=== PATIENT | male | born 1935 | race Caucasian/White ===

== ENCOUNTER 2017-03-19 12:53 | Emergency (ER) | payer MEDICARE, BC ==
[2017-03-19] MEDS ORDERED: DIPH,PERTUS(ACELL)TETVAC-LF 0.5 ML VIAL IM ONE (13:17)
--- NOTE | 2017-03-19 13:27 | ED ---
Wound/Laceration HPI - General Chief Complaint: Wound/Laceration Stated Complaint: Left Finger Laceration Time Seen by Provider: 03/19/17 13:13 Source: patient, RN notes reviewed Mode of arrival: ambulatory Limitations: no limitations - History of Present Illness Initial Comments: This is an 81-year-old male presents to emergency department today with chief complaint of left index finger laceration. Patient states he was using a table saw this morning at about 11 AM when he cut the tip of his left index finger. He wrapped his wound and his transported him to the emergency department. Patient states he is not in any pain. Patient states he is not on any blood thinners. He reports he is not up-to-date with his tetanus vaccination. Denies fever, chills, chest pain, shortness of breath, abdominal pain, nausea, vomiting , dysuria, hematuria, numbess, tingling, headache or vision changes. - Related Data Home Medications Medication Instructions Recorded Confirmed Cetirizine HCl 10 mg PO DAILY 03/02/15 03/13/15 Triamcinolone Acetonide [Nasacort] 1 spray EA NOSTRIL DAILY 03/02/15 03/13/15 Naproxen Sodium [Aleve] 220 mg PO BID PRN 03/19/17 03/19/17 Previous Rx's Medication Instructions Recorded Cephalexin [Keflex] 500 mg PO Q12HR #20 cap 03/19/17 Allergies Allergy/AdvReac Type Severity Reaction Status Date / Time No Known Allergies Allergy Verified 03/19/17 13:45 Review of Systems ROS Statement: Those systems with pertinent positive or pertinent negative responses have been documented in the HPI. ROS Other: All systems not noted in ROS Statement are negative. Past Medical History Past Medical History: Cancer, Eye Disorder, Hearing Disorder / Deafness, Skin Disorder Additional Past Medical History / Comment(s): HX LT CATARACT; "CA COLON POLYP, " & SKIN LESION CA; ING HERNIA'S AIDEN, LT RECURRENT NOW. History of Any Multi-Drug Resistant Organisms: None Reported Past Surgical History: Cholecystectomy, Hernia Repair, Orthopedic Surgery Additional Past Surgical History / Comment(s): COLONOSCOPY W/ POLYP. EXC LT CATARACT. RT ROTATOR CUFF, CTR, KNEE SCOPE. AIDEN ING HERNIA'S. Past Anesthesia/Blood Transfusion Reactions: No Reported Reaction Additional Past Anesthesia/Blood Transfusion Reaction / Comment(s): NO HX BLOOD TRANSFUSION. Past Psychological History: No Psychological Hx Reported Smoking Status: Never smoker Past Alcohol Use History: None Reported Past Drug Use History: None Reported - Past Family History Mother Family Medical History: Cancer General Exam - General Exam Comments Initial Comments: General: Awake and alert, well-developed; in no apparent distress. HEENT: Head atraumatic, normocephalic. Pupils are equal, round and reactive to light. Extraocular movements intact. Neck: Supple. Normal ROM. Cardiovascular: Regular rate and rhythm. No murmurs, rubs or gallops. Chest symmetrical. Respiratory: Lungs clear to auscultation bilaterally. No wheezes, rales or rhonchi. Normal respiratory effort with no use of accessory muscles. Musculoskeletal: Distal left index finger partial amputation at tip and lateral border of nail. Minimal bleeding. Neurovascular intact. Skin: [place], warm and dry without rashes or lesions. Neurological: Alert and oriented x3. CN II-XII grossly intact. Speech is fluent and answers are appropriate. No focal neuro deficits. Psychiatric: Normal mood and affect. No overt signs of depression or anxiety noted. Limitations: no limitations Course Vital Signs 03/19/17 03/19/17 13:08 14:44 Temperature 98.1 F 97.6 F Pulse Rate 86 80 Respiratory 20 16 Rate Blood Pressure 158/77 151/78 O2 Sat by Pulse 98 98 Oximetry Procedures - Laceration Laceration #1 Consent Obtained: verbal consent Indication: laceration Site: hand (left index finger tip) Description: linear Depth: simple, single layer Anesthesia Technique: nerve block Pre-repair: wound explored, irrigated extensively, deep structures intact Type of Sutures: nylon Size of Sutures: 4-0 Number of Sutures: 1 Technique: simple, interrupted Patient Tolerated Procedure: well, no complications - Nerve Block Consent Obtained: verbal consent Local Anesthetic Used: Lidocaine 1% Side: left Nerve Blocks: digital Procedure Successful: Yes Complications: none Patient Tolerated Procedure: well Medical Decision Making - Medical Decision Making Left hand x-ray demonstrates only soft tissue injury. There is no acute bone abnormality evident. Patient will be discharged home with prescription for Keflex. One suture was placed at the tip of the left index finger. Patient tolerated procedure well. Patient was given an up-to-date tetanus vaccination. Disposition Clinical Impression: Laceration of left index finger Disposition: HOME SELF-CARE Condition: Good Instructions: Finger Laceration (ED) Additional Instructions: Please take medications as prescribed. Please follow up with PCP within 1-2 days. Please follow up with orthopedics, Dr. Espinal within 1-2 days. Return to ED if any signs of infection occur including redness or swelling. Prescriptions: Cephalexin [Keflex] 500 mg PO Q12HR #20 cap Referrals: Mushtaq Kern DO [Primary Care Provider] - 1-2 days Elfego Espinal MD [STAFF PHYSICIAN] - 1-2 days Time of Disposition: 14:39
--- NOTE | 2017-03-19 14:01 | XR ---
Left hand HISTORY: Laceration 3 views of the left hand No comparisons Soft tissue defect noted at the second digit distally of the left hand. No fracture or dislocation. N o radiopaque foreign body. Arthropathy noted in the digits, radiocarpal joint, metacarpophalangeal madelyn ints. There are vascular calcifications. Metallic density present in the thenar eminence region measu res 2 mm and is of questionable clinical significance. IMPRESSION: Soft tissue injury. No acute bone abnormality evident. Follow-up as indicated.
[2017-03-19 14:45] VITALS: BP 151/78; PULSE 80; RESP 16; TEMP 97.6
--- NOTE | 2017-03-21 08:39 | CDI ---
Documentation Clarification OP Dear Sonya COLLINS, PAC Please do addendum to ED report include the length and depth of the repair. Thank you, Vera Michelle Wet Room Supervisor If you have any question, Please contact canvassing manager at [phone] SALD
== END 2017-03-19 14:49 | disposition home or self-care (01) ==
LOC: EC 12:53
DX: S61.211A Laceration without foreign body of left index finger without damage to nail, initial encounter (principal); Z23 Encounter for immunization; Z85.038 Personal history of other malignant neoplasm of large intestine; Z85.828 Personal history of other malignant neoplasm of skin; Z79.899 Other long term (current) drug therapy; W31.2XXA Contact with powered woodworking and forming machines, initial encounter
CPT/HCPCS: 12001; 90471; 90715; 99283

== ENCOUNTER 2017-04-09 08:09 | Emergency (ER) | payer MEDICARE, BC ==
[2017-04-09 08:17] VITALS: TEMP 97.8
[2017-04-09] MEDS ORDERED: ORPHENADRINE 30 MG/ML 2 ML VIAL IM STA (08:32)
[2017-04-09] MEDS ORDERED: KETOROLAC 60 MG/2 ML VIAL IM STA (08:32)
--- NOTE | 2017-04-09 08:52 | ED ---
Back Pain HPI - General Chief Complaint: Back Pain/Injury Stated Complaint: back pain left side Time Seen by Provider: 04/09/17 08:25 Source: patient, RN notes reviewed, old records reviewed Limitations: no limitations - History of Present Illness Initial Comments: This is a 81-year-old male presents emergency Department chief complaint of left -sided thoracic back pain after he was picking up walnuts. Patient reports he bent down to pick a walnut up when one fell from the tree. He reports he landed on his left thoracic back. He reports that since that he's been having some pain. He reports it's painful whenever he moves. Patient states he's had no change in urination or bowel habits. Denies any fever or chills. Patient states that it is uncomfortable to sleep last night. He did take Aleve prior to arriving to emergency department. Denies any history significant past medical history, denies any known history of back problems. - Related Data Home Medications Medication Instructions Recorded Confirmed Triamcinolone Acetonide [Nasacort] 1 spray EA NOSTRIL DIRECTED 03/02/1504/09 Previous Rx's Medication Instructions Recorded Cyclobenzaprine [Flexeril] 10 mg PO TID #20 tab 04/09/17 Allergies Allergy/AdvReac Type Severity Reaction Status Date / Time No Known Allergies Allergy Verified 04/09/17 08:35 Review of Systems ROS Statement: Those systems with pertinent positive or pertinent negative responses have been documented in the HPI. ROS Other: All systems not noted in ROS Statement are negative. Past Medical History Past Medical History: Cancer, Eye Disorder, Hearing Disorder / Deafness, Skin Disorder Additional Past Medical History / Comment(s): HX LT CATARACT; "CA COLON POLYP, " & SKIN LESION CA; ING HERNIA'S AIDEN, LT RECURRENT NOW. History of Any Multi-Drug Resistant Organisms: None Reported Past Surgical History: Cholecystectomy, Hernia Repair, Orthopedic Surgery Additional Past Surgical History / Comment(s): COLONOSCOPY W/ POLYP. EXC LT CATARACT. RT ROTATOR CUFF, CTR, KNEE SCOPE. AIDEN ING HERNIA'S. Past Anesthesia/Blood Transfusion Reactions: No Reported Reaction Additional Past Anesthesia/Blood Transfusion Reaction / Comment(s): NO HX BLOOD TRANSFUSION. Past Psychological History: No Psychological Hx Reported Smoking Status: Never smoker Past Alcohol Use History: None Reported Past Drug Use History: None Reported - Past Family History Mother Family Medical History: Cancer General Exam - General Exam Comments Initial Comments: 81-year-old male. No acute distress. Limitations: no limitations General appearance: alert, in no apparent distress Head exam: Present: atraumatic, normocephalic, normal inspection Eye exam: Present: normal appearance, PERRL, EOMI. Absent: scleral icterus, conjunctival injection, periorbital swelling ENT exam: Present: normal exam, mucous membranes moist Neck exam: Present: normal inspection. Absent: tenderness, meningismus, lymphadenopathy Respiratory exam: Present: normal lung sounds bilaterally, chest wall tenderness (Patient has some tenderness over the mid thoracic paraspinal muscles. Patient has no bruising noted. No rashes noted.). Absent: respiratory distress, wheezes, rales, rhonchi, stridor Cardiovascular Exam: Present: regular rate, normal rhythm, normal heart sounds. Absent: systolic murmur, diastolic murmur, rubs, gallop, clicks GI/Abdominal exam: Present: soft, normal bowel sounds. Absent: distended, tenderness, guarding, rebound, rigid Extremities exam: Present: normal inspection, full ROM, normal capillary refill. Absent: tenderness, pedal edema, joint swelling, calf tenderness Back exam: Present: normal inspection Neurological exam: Present: alert, oriented X3, CN II-XII intact Psychiatric exam: Present: normal affect, normal mood Skin exam: Present: warm, dry, intact, normal color. Absent: rash Course Vital Signs 04/09/17 08:15 Temperature 97.8 F Pulse Rate 75 Respiratory 20 Rate Blood Pressure 173/94 O2 Sat by Pulse 98 Oximetry Medical Decision Making - Medical Decision Making 81-year-old male presents emergency room chief complaint of left thoracic muscle pain after he was hit with a walnut [employer] from his yard. Patient has no bruising noted. Discussed the possibility of early shingles with the pain in this area. Patient reports pain is worse with movement. He is tender to palpation over the paraspinal muscles. This time patient is given Toradol and Norflex. Patient will be discharged in stable muscle relaxers and advised to take anti-inflammatory medication. Applying heat and ice over the area. Discussed if he has any other attempts tomorrow symptoms he should return the emergency department. His thoracic and lumbar spine x-rays reviewed and show no acute abdomen days. Urinalysis is negative for any blood in his urine are signs of infection. At this time patient will be discharged with close follow-up with primary care provider. Return primary's were discussed. - Lab Data Lab Results 04/09/17 Range/Units 08:36 Urine Color Yellow Urine Appearance Clear (Clear) Urine pH 6.0 (5.0-8.0) Ur Specific [place] 1.020 (1.001-1.035) Urine Protein Trace H (Negative) Urine Glucose (UA) Negative (Negative) Urine Ketones Negative (Negative) Urine Blood Negative (Negative) Urine Nitrite Negative (Negative) Urine Bilirubin Negative (Negative) Urine Urobilinogen <2.0 (<2.0) mg/dL Ur Leukocyte Esterase Negative (Negative) - Radiology Data Radiology results: report reviewed Lumbar spine x-ray shows an acute fracture subluxation. Degenerative disc disease and facet arthropathy. Evidence of osteopenia. Thoracic spine shows no acute fracture subluxation. Disposition Clinical Impression: Thoracic back pain Disposition: HOME SELF-CARE Condition: Good Instructions: Acute Low Back Pain (ED) Additional Instructions: Patient is to continue to take anti-inflammatory medication such as Aleve. She also can take muscle relaxers as prescribed. Apply heat and ice to the back. Follow up with her primary care provider within the next 1-2 days. Prescriptions: Cyclobenzaprine [Flexeril] 10 mg PO TID #20 tab Referrals: Mushtaq Kern DO [Primary Care Provider] - 1-2 days Time of Disposition: 09:40
[2017-04-09 09:11] LABS: Appearance,Urine Clear (Clear); Bilirubin,Urine Negative (Negative); Glucose,Urine (UA) Negative (Negative); Ketones,Urine Negative (Negative); Leukocyte Esterase,Urine Negative (Negative); Nitrite,Urine Negative (Negative); Protein,Urine Trace (Negative); UA Billing (MACRO vs. MICRO) CHEM; Urobilinogen,Urine <2.0 mg/dL (<2.0)
--- NOTE | 2017-04-09 09:19 | XR ---
Thoracic spine HISTORY: Back pain, trauma 2 views of the thoracic spine on 4 images Thoracic vertebral bodies show preserved height and alignment. Bone mineralization is reduced. There is mild spinal curvature, multilevel spondylosis. Disc spaces relatively maintained. IMPRESSION: No acute fracture or subluxation.
--- NOTE | 2017-04-09 09:20 | XR ---
Lumbar spine HISTORY: Trauma and pain 3 views of the lumbar spine Lumbar vertebral bodies show preserved height and alignment. Bone mineralization is reduced. Spondylo sis. Mild loss of disc height at the intervertebral levels. Sclerosis present in the posterior elemen ts. Vascular calcifications are present. Surgical clips noted in the right upper quadrant. IMPRESSION: No acute fracture or subluxation. Degenerative disc disease and facet arthropathy, osteop enia.
[2017-04-09 09:57] VITALS: BP 161/78; PULSE 78; RESP 16
== END 2017-04-09 09:54 | disposition home or self-care (01) ==
LOC: EC 08:09
DX: M54.6 Pain in thoracic spine (principal); Z85.828 Personal history of other malignant neoplasm of skin; Z79.52 Long term (current) use of systemic steroids
CPT/HCPCS: 81003; 72070; 72100; 99284; 96372 ×2; J2360; J1885

== ENCOUNTER 2020-02-08 17:53 | Emergency (ER) | payer MEDICARE, BC ==
[2020-02-08 18:01] VITALS: RESP 18; TEMP 98
[2020-02-08] MEDS ORDERED: SODIUM CHLORIDE 0.9% 1,000 ML IV STA (18:09)
[2020-02-08] MEDS ORDERED: SODIUM CHLORIDE 0.9% 500 ML 500 ML IV STA (18:09)
--- NOTE | 2020-02-08 18:10 | ED ---
Chest Pain HPI - General Chief Complaint: Chest Pain Stated Complaint: chest pain Time Seen by Provider: 02/08/20 18:09 Source: patient, RN notes reviewed, old records reviewed Mode of arrival: wheelchair Limitations: no limitations - History of Present Illness Initial Comments: This is a 4-year-old male DF for evaluation of chest pain. Patient has no significant history of chest pain patient requiring anything for pain states the chest pain is just mild admits using a heat pad on the right side of his chest on arrival to the ER admits he notices a rash on the right side of his chest patient has no significant heart history no high blood pressure cholesterol diabetes, no recent fevers cough or congestion. No current shortness of breath. MD Complaint: chest pain (Right-sided chest) -: hour(s) Pain Location: right chest Severity: mild Severity scale (1-10): 2 Quality: sharp, other (Burning) Consistency: intermittent Improves With: nothing Worsens With: nothing Treatments Prior to Arrival: none - Related Data Home Medications Medication Instructions Recorded Confirmed Triamcinolone Acetonide [Nasacort] 1 spray EA NOSTRIL DIRECTED 03/02/15 04/09/17 Previous Rx's Medication Instructions Recorded Cyclobenzaprine [Flexeril] 10 mg PO TID #20 tab 04/09/17 Allergies Allergy/AdvReac Type Severity Reaction Status Date / Time No Known Allergies Allergy Verified 02/08/20 18:01 Review of Systems ROS Statement: Those systems with pertinent positive or pertinent negative responses have been documented in the HPI. ROS Other: All systems not noted in ROS Statement are negative. EKG Findings - EKG Comments: EKG Findings:: EKG is sinus rhythm 79, SC 160 QRS 90 QTC 442 Past Medical History Past Medical History: Cancer, Eye Disorder, Hearing Disorder / Deafness, Skin Disorder Additional Past Medical History / Comment(s): HX LT CATARACT; "CA COLON POLYP," & SKIN LESION CA; ING HERNIA'S AIDEN, LT RECURRENT NOW. History of Any Multi-Drug Resistant Organisms: None Reported Past Surgical History: Cholecystectomy, Hernia Repair, Orthopedic Surgery Additional Past Surgical History / Comment(s): COLONOSCOPY W/ POLYP. EXC LT CATARACT. RT ROTATOR CUFF, CTR, KNEE SCOPE. AIDEN ING HERNIA'S. Past Anesthesia/Blood Transfusion Reactions: No Reported Reaction Additional Past Anesthesia/Blood Transfusion Reaction / Comment(s): NO HX BLOOD TRANSFUSION. Past Psychological History: No Psychological Hx Reported Smoking Status: Never smoker Past Alcohol Use History: None Reported Past Drug Use History: None Reported - Past Family History Mother Family Medical History: Cancer General Exam Limitations: no limitations General appearance: alert, in no apparent distress Head exam: Present: atraumatic, normocephalic, normal inspection Eye exam: Present: normal appearance, PERRL, EOMI. Absent: scleral icterus, conjunctival injection, periorbital swelling ENT exam: Present: normal exam, mucous membranes moist Neck exam: Present: normal inspection. Absent: tenderness, meningismus, lymphadenopathy Respiratory exam: Present: normal lung sounds bilaterally. Absent: respiratory distress, wheezes, rales, rhonchi, stridor Cardiovascular Exam: Present: regular rate, normal rhythm, normal heart sounds, other (Patient does have herpetic type rash right side of chest). Absent: systolic murmur, diastolic murmur, rubs, gallop, clicks GI/Abdominal exam: Present: soft, normal bowel sounds. Absent: distended, tenderness, guarding, rebound, rigid Extremities exam: Present: normal inspection, full ROM, normal capillary refill. Absent: tenderness, pedal edema, joint swelling, calf tenderness Back exam: Present: normal inspection Neurological exam: Present: alert, oriented X3, CN II-XII intact Psychiatric exam: Present: normal affect, normal mood Skin exam: Present: warm, dry, intact, normal color. Absent: rash Course Vital Signs 02/08/20 02/08/20 17:56 18:46 Temperature 98.0 F Pulse Rate 81 79 Respiratory 18 18 Rate Blood Pressure 170/92 170/90 O2 Sat by Pulse 96 97 Oximetry - Reevaluation(s) Reevaluation #1: Medical record is reviewed Patient is without significant symptoms here in the ER feels improved Spoke patient regarding findings, questions answered Patient feels comfortable with discharge Chest Pain MDM - MDM 84 male DF for evaluation of chest pain patient does have herpetic type rash on right side of chest possibly be burn from warming, patient has a normal chest x- ray normal CTA of his chest normal lab values EKG and troponin. Patient does not want to be admitted would like discharge and can be discharged home Disposition Clinical Impression: Atypical chest pain, Herpes zoster Disposition: HOME SELF-CARE Condition: Good Instructions (If sedation given, give patient instructions): Chest Pain (ED), Shingles (ED) Is patient prescribed a controlled substance at d/c from ED?: No Referrals: Mushtaq Kern DO [Primary Care Provider] - 1-2 days
[2020-02-08 18:36] LABS: Basophils # (A) 0.1 k/uL (0-0.2); Basophils % (A) 1 %; Eosinophils # (A) 0.5 k/uL (0-0.7); Eosinophils % (A) 9 %; HCT 44.7 % (39.0-53.0); HGB 14.3 gm/dL (13.0-17.5); Lymphocytes # (A) 0.9 k/uL (1.0-4.8); Lymphocytes % (A) 15 %; MCH 29.3 pg (25.0-35.0); MCV 91.5 fL (80.0-100.0); Mean Platelet Volume 7.4; Monocytes # (A) 0.5 k/uL (0-1.0); Monocytes % (A) 9 %; Neutrophils # (A) 3.6 k/uL (1.3-7.7); Neutrophils % (A) 63 %; Platelet Count 226 k/uL (150-450); RBC 4.88 m/uL (4.30-5.90); RDW 12.7 % (11.5-15.5); WBC 5.7 k/uL (3.8-10.6)
[2020-02-08 18:47] VITALS: BP 170/90; PULSE 79
[2020-02-08 18:48] LABS: D-Dimer 0.44 mg/L FEU (<0.60); Prothrombin Time 10.4 sec (9.0-12.0)
[2020-02-08 18:54] LABS: ALT 17 U/L (4-49); AST 22 U/L (17-59); African American GFR (CKD) >90 (>60 ml/min/1.73 sqM); Albumin 4.1 g/dL (3.5-5.0); Alkaline Phosphatase 60 U/L (38-126); Anion Gap 5 mmol/L; Blood Urea Nitrogen 10 mg/dL (9-20); Calcium 9.5 mg/dL (8.4-10.2); Carbon Dioxide 28 mmol/L (22-30); Chloride 104 mmol/L (98-107); Creatine Kinase 50 U/L (55-170); Glucose 87 mg/dL (74-99); Magnesium 2.1 mg/dL (1.6-2.3); Non-African American GFR(CKD) 81 (>60 ml/min/1.73 sqM); Potassium 4.1 mmol/L (3.5-5.1); Sodium 137 mmol/L (137-145); Total Bilirubin 0.6 mg/dL (0.2-1.3); Total Protein 6.9 g/dL (6.3-8.2)
--- NOTE | 2020-02-08 18:56 | XR ---
EXAMINATION TYPE: XR chest 2V DATE OF EXAM: 02/08/2020 COMPARISON: NONE HISTORY: Shortness of breath TECHNIQUE: Frontal and lateral views of the chest are obtained. FINDINGS: Scattered senescent parenchymal changes noted. Hyperinflation compatible with COPD. No evidence for infiltrate. No evidence for atelectasis. Heart size is stable. Mediastinal structures are stable and grossly unremarkable. No evidence for hilar prominence. Degenerative changes dorsal spine. IMPRESSION: 1. No evidence for acute pulmonary disease.
--- NOTE | 2020-02-08 19:48 | CT ---
EXAMINATION TYPE: CT angio chest DATE OF EXAM: 02/08/2020 COMPARISON: None HISTORY: chest pain CT DLP: 353 mGycm CONTRAST: CT chest with contrast and 3D reconstruction with MIP imaging is performed with IV Contrast, patient injected with 100 mL of Isovue 370. Contrast-enhanced CT of the chest was performed through the course of the pulmonary arteries with armani g and mediastinal window settings submitted. 3D reconstruction with MIP imaging was also performed. PULMONARY ARTERIES: The pulmonary arteries and their major tributaries are patent. I do not see sergio dence for sizable filling defect to suggest pulmonary embolic process. LUNGS: The lungs are clear and free of infiltrate. No evidence for atelectasis. No pulmonary nodule or mass is detected. No pleural effusion. MEDIASTINUM: Thoracic aorta is of normal caliber,however, evaluation is limited given timing of the contrast bolus. If there is concern for thoracic aortic pathology consider MELINDA. Correlate clinicall y . The heart is not enlarged. No evidence for mediastinal mass. No mediastinal lymph nodes greater than 1cm. HILAR STRUCTURES: No evidence for mass. No hilar lymph nodes greater than 1 cm. UPPER ABDOMEN: Nonspecific Hypoattenuating renal and hepatic lesions. IMPRESSION: 1. No evidence for Pulmonary embolism at this time.
[2020-02-08] MEDS ORDERED: KETOROLAC 15 MG/ML 1 ML VIAL IVP STA (20:00)
[2020-02-08] MEDS ORDERED: IBUPROFEN 600 MG STARTER PACK 4 TAB BTL PO STA (20:00)
[2020-02-08] MEDS ORDERED: ACET/COD 300 MG/30 MG STARTER PACK 6 TAB BTL PO STA (20:00)
[2020-02-08] MEDS ORDERED: Acetaminophen-Codeine 300-30mg TAB PO STA (20:00)
[2020-02-08] MEDS ORDERED: LIDOCAINE 5% PATCH TOPICAL ONE (20:17)
[2020-02-09] MEDS ORDERED: LIDOCAINE 5% PATCH TOPICAL SCH (09:00)
== END 2020-02-08 20:31 | disposition home or self-care (01) ==
LOC: EC 17:53
DX: R07.89 Other chest pain (principal); B02.9 Zoster without complications; H91.90 Unspecified hearing loss, unspecified ear; Z79.51 Long term (current) use of inhaled steroids; Z85.828 Personal history of other malignant neoplasm of skin; Z85.038 Personal history of other malignant neoplasm of large intestine
CPT/HCPCS: 36415; 93005; 85379; 83880; 80053; 82550; 83690; 83735; 84484; 85025; 85610; 85730; 71046; 71275; 99285; 96360; 96361; Q9967

== ENCOUNTER 2020-03-05 08:14 | Emergency (ER) | payer MEDICARE, BC ==
[2020-03-05 08:20] VITALS: BP 161/96; PULSE 84; RESP 18; TEMP 97.6
[2020-03-05] MEDS ORDERED: ACET/COD 300 MG/30 MG STARTER PACK 6 TAB BTL PO STA (08:40)
[2020-03-05] MEDS ORDERED: LIDOCAINE 5% PATCH TOPICAL STA (08:40)
[2020-03-05] MEDS ORDERED: MORPHINE SULFATE 4 MG/ML SYRINGE IM STA (08:41)
--- NOTE | 2020-03-05 09:08 | ED ---
General Adult HPI - General Chief complaint: Skin/Abscess/Foreign Body Stated complaint: Pain control shingles Time Seen by Provider: 03/05/20 08:28 Source: patient, RN notes reviewed, old records reviewed Mode of arrival: ambulatory Limitations: no limitations - History of Present Illness Initial comments: Patient is an 84-year-old male who presents to the ER today for evaluation with complaints of postherpetic neuralgia. Patient reports his diagnosis shingles in January. He states is been taking gabapentin and pregabalin since seen by his PCP. He states that he is not having any significant relief of his pain. Patient states that he has no shift shortness of breath or chest pain. He states that the right side of his chest is very sensitive to touch. He states that he has no active lesions and they're all scarring and trying to heal. - Related Data Home Medications Medication Instructions Recorded Confirmed Triamcinolone Acetonide [Nasacort] 1 spray EA NOSTRIL DIRECTED 03/02/15 04/09/17 Previous Rx's Medication Instructions Recorded Cyclobenzaprine [Flexeril] 10 mg PO TID #20 tab 04/09/17 Acetaminophen-Codeine 300-30mg 1 tab PO Q6H PRN 3 Days #12 tablet 03/05/20 [Tylenol w/codeine #3] Lidocaine 5% Patch [Lidoderm 5% 1 patch TOPICAL DAILY #30 patch 03/05/20 Patch] Allergies Allergy/AdvReac Type Severity Reaction Status Date / Time No Known Allergies Allergy Verified 03/05/20 08:20 Review of Systems ROS Statement: Those systems with pertinent positive or pertinent negative responses have been documented in the HPI. ROS Other: All systems not noted in ROS Statement are negative. Past Medical History Past Medical History: Cancer, Eye Disorder, Hearing Disorder / Deafness, Skin Disorder Additional Past Medical History / Comment(s): HX LT CATARACT; "CA COLON POLYP," & SKIN LESION CA; ING HERNIA'S AIDEN, LT RECURRENT NOW. History of Any Multi-Drug Resistant Organisms: None Reported Past Surgical History: Cholecystectomy, Hernia Repair, Orthopedic Surgery Additional Past Surgical History / Comment(s): COLONOSCOPY W/ POLYP. EXC LT CATARACT. RT ROTATOR CUFF, CTR, KNEE SCOPE. AIDEN ING HERNIA'S. Past Anesthesia/Blood Transfusion Reactions: No Reported Reaction Additional Past Anesthesia/Blood Transfusion Reaction / Comment(s): NO HX BLOOD TRANSFUSION. Past Psychological History: No Psychological Hx Reported Smoking Status: Never smoker Past Alcohol Use History: None Reported Past Drug Use History: None Reported - Past Family History Mother Family Medical History: Cancer General Exam - General Exam Comments Initial Comments: A 84-year-old male. Alert and oriented. No significant distress. Limitations: no limitations General appearance: alert, in no apparent distress Head exam: Present: atraumatic, normocephalic, normal inspection Eye exam: Present: normal appearance, PERRL, EOMI. Absent: scleral icterus, conjunctival injection, periorbital swelling ENT exam: Present: normal exam, mucous membranes moist Neck exam: Present: normal inspection. Absent: tenderness, meningismus, lymphadenopathy Respiratory exam: Present: normal lung sounds bilaterally, other (Patient has erythematous scarring over the right chest wall into the neck. Areas on right- sided see 3-4 dermatome. No evidence of papular lesions. Significant tenderness with palpation over chest). Absent: respiratory distress, wheezes, rales, rhonchi, stridor Cardiovascular Exam: Present: regular rate, normal rhythm, normal heart sounds. Absent: systolic murmur, diastolic murmur, rubs, gallop, clicks GI/Abdominal exam: Present: soft, normal bowel sounds. Absent: distended, tenderness, guarding, rebound, rigid Extremities exam: Present: normal inspection, full ROM, normal capillary refill. Absent: tenderness, pedal edema, joint swelling, calf tenderness Back exam: Present: normal inspection Neurological exam: Present: alert, oriented X3, CN II-XII intact Course Vital Signs 03/05/20 08:16 Temperature 97.6 F Pulse Rate 84 Respiratory 18 Rate Blood Pressure 161/96 O2 Sat by Pulse 99 Oximetry Medical Decision Making - Medical Decision Making A sexual male presents with right chest wall pain and postherpetic neuralgia. He has evidence of healing scar tissue over the previous lesions. Patient at the systems are day taking gabapentin and pregabalin. Patient's given IM pain medication and lidocaine patch. We'll start the Patient on Tylenol 3 starter pack. I advised Patient to follow-up with PCP in regards to increasing pregabalin and gabapentin. Disposition Clinical Impression: Post herpetic neuralgia Disposition: HOME SELF-CARE Condition: Good Instructions (If sedation given, give patient instructions): Shingles (ED) Additional Instructions: Patient is a follow-up with your PCP in regards to adjusting gabapentin dosage. Return to the ED if any alarming signs or symptoms occur. Taking pain medication as discussed and using the lidocaine patches for 12 hours on and 12 hours off. Prescriptions: Lidocaine 5% Patch [Lidoderm 5% Patch] 1 patch TOPICAL DAILY #30 patch Acetaminophen-Codeine 300-30mg [Tylenol w/codeine #3] 1 tab PO Q6H PRN 3 Days #12 tablet PRN Reason: Pain Is patient prescribed a controlled substance at d/c from ED?: Yes If prescribed controlled substance>3 days was MAPS reviewed?: Prescribed <3 Days If opioid is for acute pain is fill amount 7 days or less?: Yes If Rx opioid, was Start Talking consent form obtained?: Yes Referrals: Mushtaq Kern DO [Primary Care Provider] - 1-2 days Time of Disposition: 09:05
== END 2020-03-05 09:14 | disposition home or self-care (01) ==
LOC: EC 08:14
DX: B02.29 Other postherpetic nervous system involvement (principal); R07.89 Other chest pain; H91.90 Unspecified hearing loss, unspecified ear; Z79.51 Long term (current) use of inhaled steroids; Z85.828 Personal history of other malignant neoplasm of skin
CPT/HCPCS: 99284 ×2; 96372 ×2; 99283; J2270; J1170

== ENCOUNTER 2020-03-05 17:10 | Emergency (ER) | payer MEDICARE, BC ==
[2020-03-05 17:20] VITALS: BP 144/97; PULSE 97; RESP 18; TEMP 97.1
[2020-03-05] MEDS ORDERED: HYDROmorphone 0.5 MG/0.5 ML SYRINGE IM STA (17:24)
--- NOTE | 2020-03-05 17:51 | ED ---
General Adult HPI - General Chief complaint: Recheck/Abnormal Lab/Rx Stated complaint: Shingles Time Seen by Provider: 03/05/20 17:19 Source: patient, RN notes reviewed Mode of arrival: ambulatory Limitations: no limitations - History of Present Illness Initial comments: 84-year-old male presents to the emergency room for a chief complaint of pain. Patient reports that he has had shingles for 4 weeks. States it is on his right shoulder and right anterior chest. Patient reports that he was on gabapentin but that has been changed to Lyrica a few days ago. States the pain is getting worse and it feels like he is being stung by bees. He was seen here earlier and given morphine and then Tylenol 3 and lidocaine patches for home which did not help with his symptoms. Patient presents now for pain relief. He did take a Tylenol 3 prior to arrival. no fevers..Patient has no other complaints at this time including shortness of breath, chest pain, abdominal pain, nausea or vomiting, headache, or visual changes. - Related Data Home Medications Medication Instructions Recorded Confirmed Triamcinolone Acetonide [Nasacort] 1 spray EA NOSTRIL DIRECTED 03/02/15 04/09/17 Previous Rx's Medication Instructions Recorded Cyclobenzaprine [Flexeril] 10 mg PO TID #20 tab 04/09/17 Acetaminophen-Codeine 300-30mg 1 tab PO Q6H PRN 3 Days #12 tablet 03/05/20 [Tylenol w/codeine #3] HYDROcodone/APAP 5-325MG [[place] 1 tab PO Q6HR PRN #10 tab 03/05/20 5-325] Lidocaine 5% Patch [Lidoderm 5% 1 patch TOPICAL DAILY #30 patch 03/05/20 Patch] diphenhydrAMINE HCL [Benadryl] 25 mg PO HS #20 tab 03/05/20 Allergies Allergy/AdvReac Type Severity Reaction Status Date / Time No Known Allergies Allergy Verified 03/05/20 08:20 Review of Systems ROS Statement: Those systems with pertinent positive or pertinent negative responses have been documented in the HPI. ROS Other: All systems not noted in ROS Statement are negative. Past Medical History Past Medical History: Cancer, Eye Disorder, Hearing Disorder / Deafness, Skin Disorder Additional Past Medical History / Comment(s): HX LT CATARACT; "CA COLON POLYP," & SKIN LESION CA; ING HERNIA'S AIDEN, LT RECURRENT NOW. History of Any Multi-Drug Resistant Organisms: None Reported Past Surgical History: Cholecystectomy, Hernia Repair, Orthopedic Surgery Additional Past Surgical History / Comment(s): COLONOSCOPY W/ POLYP. EXC LT CATARACT. RT ROTATOR CUFF, CTR, KNEE SCOPE. AIDEN ING HERNIA'S. Past Anesthesia/Blood Transfusion Reactions: No Reported Reaction Additional Past Anesthesia/Blood Transfusion Reaction / Comment(s): NO HX BLOOD TRANSFUSION. Past Psychological History: No Psychological Hx Reported Smoking Status: Never smoker Past Alcohol Use History: None Reported Past Drug Use History: None Reported - Past Family History Mother Family Medical History: Cancer General Exam Limitations: no limitations General appearance: alert, in no apparent distress Head exam: Present: atraumatic, normocephalic, normal inspection Eye exam: Present: normal appearance, PERRL, EOMI. Absent: scleral icterus, conjunctival injection, periorbital swelling ENT exam: Present: normal exam, mucous membranes moist Neck exam: Present: normal inspection, full ROM. Absent: tenderness, meningismus, lymphadenopathy Respiratory exam: Present: normal lung sounds bilaterally. Absent: respiratory distress, wheezes, rales, rhonchi, stridor Cardiovascular Exam: Present: regular rate, normal rhythm, normal heart sounds. Absent: systolic murmur, diastolic murmur, rubs, gallop, clicks Skin exam: Present: rash (Patient has a vesicular rash noted on the anterior right upper chest wall as well as shoulder. No evidence of cellulitic infection.) Course Vital Signs 03/05/20 17:16 Temperature 97.1 F L Pulse Rate 97 Respiratory 18 Rate Blood Pressure 144/97 O2 Sat by Pulse 98 Oximetry Medical Decision Making - Medical Decision Making Patient was given IM Dilaudid. Patient will be given R[place]on one set of Tylenol 3. I did recommend he take a Benadryl before bed. However I did discuss the risks of falls and confusion with these medications. He reports that his daughter and will watch him closely. He will continue the lidocaine patches. Patient reports he is allowed to take Motrin and has been doing so. He will follow-up with his doctor tomorrow. He will return for any worsening symptoms. Disposition Clinical Impression: Herpes zoster Disposition: HOME SELF-CARE Condition: Good Instructions (If sedation given, give patient instructions): Shingles (ED) Additional Instructions: Please take R[place]on as directed. Take Benadryl before you go to sleep. You may also take Motrin as long as your doctor has not told to not to do so. Continue to use lidocaine patches as directed. Remember to apply for 12 hours and then remove for 12 hours before applying additional patch. Please follow-up with primary care tomorrow. Return here to the emergency room for any worsening symptoms. Prescriptions: diphenhydrAMINE HCL [Benadryl] 25 mg PO HS #20 tab HYDROcodone/APAP 5-325MG [R[place] 5-325] 1 tab PO Q6HR PRN #10 tab PRN Reason: Pain Is patient prescribed a controlled substance at d/c from ED?: No Referrals: Mushtaq Kern DO [Primary Care Provider] - 1-2 days Time of Disposition: 17:49
== END 2020-03-05 17:55 | disposition home or self-care (01) ==
LOC: EC 17:10
DX: B02.9 Zoster without complications (principal); Z85.828 Personal history of other malignant neoplasm of skin
CPT/HCPCS: 96372; 99283; J1170

== ENCOUNTER 2020-03-13 13:08 | Emergency (ER) | payer MEDICARE, BC ==
[2020-03-13 13:15] VITALS: RESP 18
--- NOTE | 2020-03-13 14:01 | ED ---
General Adult HPI - General Chief complaint: Psychiatric Symptoms Stated complaint: EPS eval Time Seen by Provider: 03/13/20 13:35 Source: patient, family, RN notes reviewed Mode of arrival: wheelchair Limitations: no limitations - History of Present Illness Initial comments: Patient is a pleasant 84-year-old male presenting to the emergency Department with complaints of not sleeping well. Patient does have shingles diagnosed 6 weeks ago and is improving, now near resolved.Patient has not been sleeping. Patient slept only 2 hours last night that he feels somewhat good compared to recently. Patient has been restless. Patient has been on Lyrica for several weeks now and family is concerned this could be related to the symptoms. Patient has also had some hallucinations. Patient is seen in talking to old friends who are no longer around and are not currently present. - Related Data Home Medications Medication Instructions Recorded Confirmed Ibuprofen [Motrin Ib] 800 mg PO Q8H PRN 03/13/20 03/13/20 Pregabalin [Lyrica] 300 mg PO BID 03/13/20 03/13/20 Previous Rx's Medication Instructions Recorded Lidocaine 5% Patch [Lidoderm 5% 1 patch TOPICAL DAILY #30 patch 03/05/20 Patch] Allergies Allergy/AdvReac Type Severity Reaction Status Date / Time No Known Allergies Allergy Verified 03/13/20 17:20 Review of Systems ROS Statement: Those systems with pertinent positive or pertinent negative responses have been documented in the HPI. ROS Other: All systems not noted in ROS Statement are negative. Past Medical History Past Medical History: Cancer, Eye Disorder, Hearing Disorder / Deafness, Skin Disorder Additional Past Medical History / Comment(s): HX LT CATARACT; "CA COLON POLYP," & SKIN LESION CA; ING HERNIA'S AIDEN, LT RECURRENT NOW. History of Any Multi-Drug Resistant Organisms: None Reported Past Surgical History: Cholecystectomy, Hernia Repair, Orthopedic Surgery Additional Past Surgical History / Comment(s): COLONOSCOPY W/ POLYP. EXC LT CATARACT. RT ROTATOR CUFF, CTR, KNEE SCOPE. AIDEN ING HERNIA'S. Past Anesthesia/Blood Transfusion Reactions: No Reported Reaction Additional Past Anesthesia/Blood Transfusion Reaction / Comment(s): NO HX BLOOD TRANSFUSION. Past Psychological History: No Psychological Hx Reported Smoking Status: Never smoker Past Alcohol Use History: None Reported Past Drug Use History: None Reported - Past Family History Mother Family Medical History: Cancer General Exam Limitations: no limitations Course Vital Signs 03/13/20 13:10 Temperature 98.0 F Pulse Rate 80 Respiratory 18 Rate Blood Pressure 161/96 O2 Sat by Pulse 98 Oximetry Medical Decision Making - Medical Decision Making Patient seen by mental health services who does not feel patient needs mental health admission. Patient did report them that he does not have hallucinations just Remembers and talks aboutThings from the past. did agree with this. They do request medication for pain control. - Lab Data Result diagrams: 03/13/20 14:20 03/13/20 14:20 Lab Results 03/13/20 03/13/20 03/13/20 Range/Units 14:20 14:20 14:20 WBC 6.5 (3.8-10.6) k/uL RBC 4.88 (4.30-5.90) m/uL Hgb 14.6 (13.0-17.5) gm/dL Hct 45.1 (39.0-53.0) % MCV 92.5 (80.0-100.0) fL MCH 30.0 (25.0-35.0) pg MCHC 32.4 (31.0-37.0) g/dL RDW 13.4 (11.5-15.5) % Plt Count 254 (150-450) k/uL Neutrophils % 51 % Lymphocytes % 25 % Monocytes % 8 % Eosinophils % 13 % Basophils % 1 % Neutrophils # 3.3 (1.3-7.7) k/uL Lymphocytes # 1.7 (1.0-4.8) k/uL Monocytes # 0.5 (0-1.0) k/uL Eosinophils # 0.9 H (0-0.7) k/uL Basophils # 0.1 (0-0.2) k/uL Sodium (137-145) mmol/L Potassium (3.5-5.1) mmol/L Chloride (98-107) mmol/L Carbon Dioxide (22-30) mmol/L Anion Gap mmol/L BUN (9-20) mg/dL Creatinine (0.66-1.25) mg/dL Est GFR (CKD-EPI)AfAm (>60 ml/min/1.73 sqM) Est GFR (CKD-EPI)NonAf (>60 ml/min/1.73 sqM) Glucose (74-99) mg/dL Calcium (8.4-10.2) mg/dL Urine Color Light Yellow Urine Appearance Clear (Clear) Urine pH 6.5 (5.0-8.0) Ur Specific [place] 1.006 (1.001-1.035) Urine Protein Negative (Negative) Urine Glucose (UA) Negative (Negative) Urine Ketones Negative (Negative) Urine Blood Negative (Negative) Urine Nitrite Negative (Negative) Urine Bilirubin Negative (Negative) Urine Urobilinogen <2.0 (<2.0) mg/dL Ur Leukocyte Esterase Negative (Negative) Urine Opiates Screen Not Detected (NotDetected) Ur Oxycodone Screen Not Detected (NotDetected) Urine Methadone Screen Not Detected (NotDetected) Ur Propoxyphene Screen Not Detected (NotDetected) Ur Barbiturates Screen Not Detected (NotDetected) U Tricyclic Antidepress Not Detected (NotDetected) Ur Phencyclidine Scrn Not Detected (NotDetected) Ur Amphetamines Screen Not Detected (NotDetected) U Methamphetamines Scrn Not Detected (NotDetected) U Benzodiazepines Scrn Not Detected (NotDetected) Urine Cocaine Screen Not Detected (NotDetected) U Marijuana (THC) Screen Not Detected (NotDetected) Serum Alcohol mg/dL 03/13/20 Range/Units 14:20 WBC (3.8-10.6) k/uL RBC (4.30-5.90) m/uL Hgb (13.0-17.5) gm/dL Hct (39.0-53.0) % MCV (80.0-100.0) fL MCH (25.0-35.0) pg MCHC (31.0-37.0) g/dL RDW (11.5-15.5) % Plt Count (150-450) k/uL Neutrophils % % Lymphocytes % % Monocytes % % Eosinophils % % Basophils % % Neutrophils # (1.3-7.7) k/uL Lymphocytes # (1.0-4.8) k/uL Monocytes # (0-1.0) k/uL Eosinophils # (0-0.7) k/uL Basophils # (0-0.2) k/uL Sodium 139 (137-145) mmol/L Potassium 4.5 (3.5-5.1) mmol/L Chloride 104 (98-107) mmol/L Carbon Dioxide 31 H (22-30) mmol/L Anion Gap 4 mmol/L BUN 13 (9-20) mg/dL Creatinine 0.92 (0.66-1.25) mg/dL Est GFR (CKD-EPI)AfAm 87 (>60 ml/min/1.73 sqM) Est GFR (CKD-EPI)NonAf 75 (>60 ml/min/1.73 sqM) Glucose 103 H (74-99) mg/dL Calcium 9.3 (8.4-10.2) mg/dL Urine Color Urine Appearance (Clear) Urine pH (5.0-8.0) Ur Specific [place] (1.001-1.035) Urine Protein (Negative) Urine Glucose (UA) (Negative) Urine Ketones (Negative) Urine Blood (Negative) Urine Nitrite (Negative) Urine Bilirubin (Negative) Urine Urobilinogen (<2.0) mg/dL Ur Leukocyte Esterase (Negative) Urine Opiates Screen (NotDetected) Ur Oxycodone Screen (NotDetected) Urine Methadone Screen (NotDetected) Ur Propoxyphene Screen (NotDetected) Ur Barbiturates Screen (NotDetected) U Tricyclic Antidepress (NotDetected) Ur Phencyclidine Scrn (NotDetected) Ur Amphetamines Screen (NotDetected) U Methamphetamines Scrn (NotDetected) U Benzodiazepines Scrn (NotDetected) Urine Cocaine Screen (NotDetected) U Marijuana (THC) Screen (NotDetected) Serum Alcohol <10 mg/dL Disposition Clinical Impression: Post herpetic neuralgia Disposition: HOME SELF-CARE Condition: Stable Instructions (If sedation given, give patient instructions): Shingles (ED) Additional Instructions: Please follow-up with primary care physician in the next day or 2 for recheck. Continue Lyrica and discuss thisWith Dr. Kern.Continue ibuprofen as needed. Ativan is given 2 to take home if needed to help sleep tonight. Return fo rChange or worsening symptoms, thoughts of self-harm or other concerns. Is patient prescribed a controlled substance at d/c from ED?: No Referrals: Mushtaq Kern DO [Primary Care Provider] - 1-2 days Time of Disposition: 17:46
[2020-03-13 14:38] LABS: Basophils # (A) 0.1 k/uL (0-0.2); Basophils % (A) 1 %; Eosinophils # (A) 0.9 k/uL (0-0.7); Eosinophils % (A) 13 %; HCT 45.1 % (39.0-53.0); HGB 14.6 gm/dL (13.0-17.5); Lymphocytes # (A) 1.7 k/uL (1.0-4.8); Lymphocytes % (A) 25 %; MCHC 32.4 g/dL (31.0-37.0); MCV 92.5 fL (80.0-100.0); Mean Platelet Volume 7.4; Monocytes # (A) 0.5 k/uL (0-1.0); Monocytes % (A) 8 %; Neutrophils # (A) 3.3 k/uL (1.3-7.7); Neutrophils % (A) 51 %; Platelet Count 254 k/uL (150-450); RBC 4.88 m/uL (4.30-5.90); RDW 13.4 % (11.5-15.5); WBC 6.5 k/uL (3.8-10.6)
[2020-03-13 14:42] LABS: Appearance,Urine Clear (Clear); Bilirubin,Urine Negative (Negative); Blood,Urine Negative (Negative); Color,Urine Light Yellow; Glucose,Urine (UA) Negative (Negative); Ketones,Urine Negative (Negative); Leukocyte Esterase,Urine Negative (Negative); Nitrite,Urine Negative (Negative); PH, Urine 6.5 (5.0-8.0); Protein,Urine Negative (Negative); Specific Gravity,Urine 1.006 (1.001-1.035); Urobilinogen,Urine <2.0 mg/dL (<2.0)
[2020-03-13 14:49] LABS: African American GFR (CKD) 87 (>60 ml/min/1.73 sqM); Alcohol <10 mg/dL; Anion Gap 4 mmol/L; Blood Urea Nitrogen 13 mg/dL (9-20); Calcium 9.3 mg/dL (8.4-10.2); Carbon Dioxide 31 mmol/L (22-30); Chloride 104 mmol/L (98-107); Glucose 103 mg/dL (74-99); Non-African American GFR(CKD) 75 (>60 ml/min/1.73 sqM); Potassium 4.5 mmol/L (3.5-5.1); Sodium 139 mmol/L (137-145)
[2020-03-13 14:58] LABS: Amphetamine Screen,Urine Not Detected (NotDetected); Barbiturate Screen,Urine Not Detected (NotDetected); Benzodiazepines Screen,Urine Not Detected (NotDetected); Cocaine Screen,Urine Not Detected (NotDetected); Methadone Screen, Urine Not Detected (NotDetected); Opiate Screen,Urine Not Detected (NotDetected); Oxycodone Screen, Urine Not Detected (NotDetected); Phencyclidine Screen,Urine Not Detected (NotDetected); Tricyclic Antidepressant,Urine Not Detected (NotDetected); Urn Cannabinoid Scrn Not Detected (NotDetected)
[2020-03-13] MEDS ORDERED: LORazepam 1 MG TAB PO STA (17:42)
[2020-03-13] MEDS ORDERED: traMADol 50 MG STARTER PACK 3 TAB BTL PO STA (17:42)
[2020-03-13] MEDS ORDERED: HYDROmorphone 1 MG/ML 1 ML SYRINGE IVP STA (17:42)
[2020-03-13 19:22] VITALS: BP 164/113; PULSE 79; TEMP 97.6
== END 2020-03-13 20:10 | disposition home or self-care (01) ==
LOC: EC 13:08
DX: B02.29 Other postherpetic nervous system involvement (principal); Z98.42 Cataract extraction status, left eye; Z85.038 Personal history of other malignant neoplasm of large intestine; Z85.828 Personal history of other malignant neoplasm of skin; Z80.9 Family history of malignant neoplasm, unspecified
CPT/HCPCS: 99284; 96374; 36415; 80048; 85025; 81003; 80306; G0480; J1170; 80320

== ENCOUNTER 2020-08-16 12:48 | Inpatient (IN) | payer MEDICARE, BC ==
[2020-08-16] MEDS ORDERED: SODIUM CHLORIDE 0.9% 1,000 ML IV ONE (12:54)
[2020-08-16 13:06] LABS: Glucose,Whole Blood 77 mg/dL (75-99)
--- NOTE | 2020-08-16 13:19 | ED ---
General Adult HPI - General Stated complaint: altered mental status Time Seen by Provider: 08/16/20 12:48 Source: patient, RN notes reviewed, old records reviewed - History of Present Illness Initial comments: This is an 85-year-old male who is brought into the emergency department by EMS because family called EMS because of altered mental status. Family states he just isn't quite at his baseline he is normally alert and oriented 4 and today he just is answering questions a little bit off he knew the year but he didn't know the day of the week or the month. Patient also answered some other questions off according to family. Patient himself has no complaints. There is been no report of any droopy face or weakness. Patient himself denies any pain patient denies headache patient denies any numbness or weakness per patient denies any chest pain palpitations difficult breathing shortest breath per patient denies any recent fever chills or cough per patient denies abdominal pain patient denies nausea vomiting diarrhea. Patient denies any recent fall or injury - Related Data Home Medications Medication Instructions Recorded Confirmed Ibuprofen [Motrin Ib] 800 mg PO Q8H PRN 03/13/20 03/13/20 Pregabalin [Lyrica] 300 mg PO BID 03/13/20 03/13/20 Previous Rx's Medication Instructions Recorded Lidocaine 5% Patch [Lidoderm 5% 1 patch TOPICAL DAILY #30 patch 03/05/20 Patch] Allergies Allergy/AdvReac Type Severity Reaction Status Date / Time No Known Allergies Allergy Verified 08/16/20 13:00 Review of Systems ROS Statement: Those systems with pertinent positive or pertinent negative responses have been documented in the HPI. ROS Other: All systems not noted in ROS Statement are negative. Past Medical History Past Medical History: Cancer, Eye Disorder, Hearing Disorder / Deafness, Skin Disorder Additional Past Medical History / Comment(s): HX LT CATARACT; "CA COLON POLYP," & SKIN LESION CA; ING HERNIA'S AIDEN, LT RECURRENT NOW. History of Any Multi-Drug Resistant Organisms: None Reported Past Surgical History: Cholecystectomy, Hernia Repair, Orthopedic Surgery Additional Past Surgical History / Comment(s): COLONOSCOPY W/ POLYP. EXC LT CATARACT. RT ROTATOR CUFF, CTR, KNEE SCOPE. AIDEN ING HERNIA'S. Past Anesthesia/Blood Transfusion Reactions: No Reported Reaction Additional Past Anesthesia/Blood Transfusion Reaction / Comment(s): NO HX BLOOD TRANSFUSION. Past Psychological History: No Psychological Hx Reported Smoking Status: Never smoker Past Alcohol Use History: None Reported Past Drug Use History: None Reported - Past Family History Mother Family Medical History: Cancer General Exam - General Exam Comments Initial Comments: GENERAL: Patient is well-developed and well-nourished. Patient is nontoxic and well- hydrated and is in mild distress. ENT: Neck is soft and supple. No significant lymphadenopathy is noted. Oropharynx is clear. Moist mucous membranes. Neck has full range of motion without eliciting any pain. EYES: The sclera were anicteric and conjunctiva were pink and moist. Extraocular movements were intact and pupils were equal round and reactive to light. Eyelids were unremarkable. PULMONARY: Unlabored respirations. Good breath sounds bilaterally. No audible rales rhonchi or wheezing was noted. CARDIOVASCULAR: There is a regular rate and rhythm without any murmurs gallops or rubs. ABDOMEN: Soft and nontender with normal bowel sounds. SKIN: Skin is clear with no lesions or rashes and otherwise unremarkable. NEUROLOGIC: Patient is alert and oriented x3. Cranial nerves II through XII are grossly intact. Motor and sensory are also intact. Normal speech, volume and content. Symmetrical smile. MUSCULOSKELETAL: Normal extremities with adequate strength and full range of motion. LYMPHATICS: No significant lymphadenopathy is noted PSYCHIATRIC: Normal psychiatric evaluation. Course Vital Signs 08/16/20 08/16/20 12:49 13:11 Temperature 97.9 F Pulse Rate 89 89 Respiratory 18 16 Rate Blood Pressure 173/107 125/89 O2 Sat by Pulse 94 L Oximetry Medical Decision Making - Medical Decision Making EKG shows normal sinus rhythm at 85 bpm TX interval 270 QRS is 94 QT interval 394 QTC is 468. Patient's EKG shows no ST segment elevation. Chest x-ray shows no acute abnormality. CT of the brain shows no acute abnormality. I went back into the room and the came back at this point time and indicated that he definitely had slurred speech earlier today into her his speech still is not normal but it is better. She also noted that he was definitely confused earlier and he still confused now but not quite as bad as he was earlier. Patient himself has no complaints. I spoke with Dr. Contreras he agreed to admit the patient admitted the patient wrote admitting orders. - Lab Data Result diagrams: 08/16/20 13:06 08/16/20 13:06 Lab Results 08/16/20 08/16/20 08/16/20 Range/Units 13:04 13:06 13:06 WBC 5.5 (3.8-10.6) k/uL RBC 4.99 (4.30-5.90) m/uL Hgb 14.8 (13.0-17.5) gm/dL Hct 44.2 (39.0-53.0) % MCV 88.6 (80.0-100.0) fL MCH 29.7 (25.0-35.0) pg MCHC 33.5 (31.0-37.0) g/dL RDW 13.8 (11.5-15.5) % Plt Count 262 (150-450) k/uL MPV 7.1 Neutrophils % 64 % Lymphocytes % 18 % Monocytes % 10 % Eosinophils % 5 % Basophils % 1 % Neutrophils # 3.5 (1.3-7.7) k/uL Lymphocytes # 1.0 (1.0-4.8) k/uL Monocytes # 0.5 (0-1.0) k/uL Eosinophils # 0.3 (0-0.7) k/uL Basophils # 0.1 (0-0.2) k/uL PT 10.8 (9.0-12.0) sec INR 1.0 (<1.2) APTT 23.0 (22.0-30.0) sec Sodium (137-145) mmol/L Potassium (3.5-5.1) mmol/L Chloride (98-107) mmol/L Carbon Dioxide (22-30) mmol/L Anion Gap mmol/L BUN (9-20) mg/dL Creatinine (0.66-1.25) mg/dL Est GFR (CKD-EPI)AfAm (>60 ml/min/1.73 sqM) Est GFR (CKD-EPI)NonAf (>60 ml/min/1.73 sqM) Glucose (74-99) mg/dL POC Glucose (mg/dL) 77 (75-99) mg/dL POC Glu Referral Rn ID Sandra Baldwin Calcium (8.4-10.2) mg/dL Total Bilirubin (0.2-1.3) mg/dL AST (17-59) U/L ALT (4-49) U/L Alkaline Phosphatase (38-126) U/L Troponin I (0.000-0.034) ng/mL Total Protein (6.3-8.2) g/dL Albumin (3.5-5.0) g/dL Urine Color Urine Appearance (Clear) Urine pH (5.0-8.0) Ur Specific [place] (1.001-1.035) Urine Protein (Negative) Urine Glucose (UA) (Negative) Urine Ketones (Negative) Urine Blood (Negative) Urine Nitrite (Negative) Urine Bilirubin (Negative) Urine Urobilinogen (<2.0) mg/dL Ur Leukocyte Esterase (Negative) Urine Opiates Screen (NotDetected) Ur Oxycodone Screen (NotDetected) Urine Methadone Screen (NotDetected) Ur Propoxyphene Screen (NotDetected) Ur Barbiturates Screen (NotDetected) U Tricyclic Antidepress (NotDetected) Ur Phencyclidine Scrn (NotDetected) Ur Amphetamines Screen (NotDetected) U Methamphetamines Scrn (NotDetected) U Benzodiazepines Scrn (NotDetected) Urine Cocaine Screen (NotDetected) U Marijuana (THC) Screen (NotDetected) 08/16/20 08/16/20 08/16/20 Range/Units 13:06 13:06 13:41 WBC (3.8-10.6) k/uL RBC (4.30-5.90) m/uL Hgb (13.0-17.5) gm/dL Hct (39.0-53.0) % MCV (80.0-100.0) fL MCH (25.0-35.0) pg MCHC (31.0-37.0) g/dL RDW (11.5-15.5) % Plt Count (150-450) k/uL MPV Neutrophils % % Lymphocytes % % Monocytes % % Eosinophils % % Basophils % % Neutrophils # (1.3-7.7) k/uL Lymphocytes # (1.0-4.8) k/uL Monocytes # (0-1.0) k/uL Eosinophils # (0-0.7) k/uL Basophils # (0-0.2) k/uL PT (9.0-12.0) sec INR (<1.2) APTT (22.0-30.0) sec Sodium 136 L (137-145) mmol/L Potassium 4.6 (3.5-5.1) mmol/L Chloride 102 (98-107) mmol/L Carbon Dioxide 25 (22-30) mmol/L Anion Gap 9 mmol/L BUN 16 (9-20) mg/dL Creatinine 0.92 (0.66-1.25) mg/dL Est GFR (CKD-EPI)AfAm 86 (>60 ml/min/1.73 sqM) Est GFR (CKD-EPI)NonAf 75 (>60 ml/min/1.73 sqM) Glucose 80 (74-99) mg/dL POC Glucose (mg/dL) (75-99) mg/dL POC Glu Referral Rn ID Calcium 9.2 (8.4-10.2) mg/dL Total Bilirubin 0.6 (0.2-1.3) mg/dL AST 25 (17-59) U/L ALT 27 (4-49) U/L Alkaline Phosphatase 56 (38-126) U/L Troponin I <0.012 (0.000-0.034) ng/mL Total Protein 7.0 (6.3-8.2) g/dL Albumin 4.2 (3.5-5.0) g/dL Urine Color Yellow Urine Appearance Clear (Clear) Urine pH 6.0 (5.0-8.0) Ur Specific [place] 1.010 (1.001-1.035) Urine Protein Negative (Negative) Urine Glucose (UA) Negative (Negative) Urine Ketones Negative (Negative) Urine Blood Negative (Negative) Urine Nitrite Negative (Negative) Urine Bilirubin Negative (Negative) Urine Urobilinogen <2.0 (<2.0) mg/dL Ur Leukocyte Esterase Negative (Negative) Urine Opiates Screen Not Detected (NotDetected) Ur Oxycodone Screen Not Detected (NotDetected) Urine Methadone Screen Not Detected (NotDetected) Ur Propoxyphene Screen Not Detected (NotDetected) Ur Barbiturates Screen Not Detected (NotDetected) U Tricyclic Antidepress Not Detected (NotDetected) Ur Phencyclidine Scrn Not Detected (NotDetected) Ur Amphetamines Screen Not Detected (NotDetected) U Methamphetamines Scrn Not Detected (NotDetected) U Benzodiazepines Scrn Not Detected (NotDetected) Urine Cocaine Screen Not Detected (NotDetected) U Marijuana (THC) Screen Not Detected (NotDetected) Disposition Clinical Impression: Altered mental status, TIA (transient ischemic attack) Disposition: ADMITTED IP TO THIS HOSP Referrals: Mushtaq Kern DO [Primary Care Provider] - 1-2 days Time of Disposition: 15:15
[2020-08-16 13:50] LABS: Basophils # (A) 0.1 k/uL (0-0.2); Basophils % (A) 1 %; Eosinophils # (A) 0.3 k/uL (0-0.7); Eosinophils % (A) 5 %; HCT 44.2 % (39.0-53.0); HGB 14.8 gm/dL (13.0-17.5); Lymphocytes % (A) 18 %; MCH 29.7 pg (25.0-35.0); MCHC 33.5 g/dL (31.0-37.0); MCV 88.6 fL (80.0-100.0); Mean Platelet Volume 7.1; Monocytes # (A) 0.5 k/uL (0-1.0); Monocytes % (A) 10 %; Neutrophils # (A) 3.5 k/uL (1.3-7.7); Neutrophils % (A) 64 %; Platelet Count 262 k/uL (150-450); RBC 4.99 m/uL (4.30-5.90); RDW 13.8 % (11.5-15.5); WBC 5.5 k/uL (3.8-10.6)
[2020-08-16 13:52] LABS: Prothrombin Time 10.8 sec (9.0-12.0)
[2020-08-16 13:52] LABS: Appearance,Urine Clear (Clear); Bilirubin,Urine Negative (Negative); Blood,Urine Negative (Negative); Color,Urine Yellow; Glucose,Urine (UA) Negative (Negative); Ketones,Urine Negative (Negative); Leukocyte Esterase,Urine Negative (Negative); Nitrite,Urine Negative (Negative); Protein,Urine Negative (Negative); Urobilinogen,Urine <2.0 mg/dL (<2.0)
[2020-08-16 14:01] LABS: Amphetamine Screen,Urine Not Detected (NotDetected); Barbiturate Screen,Urine Not Detected (NotDetected); Benzodiazepines Screen,Urine Not Detected (NotDetected); Cocaine Screen,Urine Not Detected (NotDetected); Methadone Screen, Urine Not Detected (NotDetected); Opiate Screen,Urine Not Detected (NotDetected); Oxycodone Screen, Urine Not Detected (NotDetected); Phencyclidine Screen,Urine Not Detected (NotDetected); Tricyclic Antidepressant,Urine Not Detected (NotDetected); Urn Cannabinoid Scrn Not Detected (NotDetected)
--- NOTE | 2020-08-16 14:10 | CT ---
EXAMINATION TYPE: CT brain wo con DATE OF EXAM: 08/16/2020 COMPARISON: None INDICATION: Altered mental status DLP: 1094.4 mGycm, Automated exposure control for dose reduction was used. CONTRAST: None CT of the brain is performed utilizing 3 mm thick sections through the posterior fossa and 3 mm thick sections through the remaining calvarium. Study is performed within 24 hours of arrival to the hosp ital. No abnormal hyperdensity is present to suggest an acute intracranial hemorrhage. No mass lesion is evident. No acute infarcts are evident. Some mild periventricular white matter hypodensity is present, likely on the basis of chronic white matter ischemic changes. Ventricles and sulci are prominent for the patient age. Paranasal sinuses and mastoid air cells within the [id number] are clear. IMPRESSIONS: 1. Atrophy with mild periventricular chronic appearing white matter ischemic changes.
[2020-08-16 14:11] LABS: Albumin 4.2 g/dL (3.5-5.0); Calcium 9.2 mg/dL (8.4-10.2); Potassium 4.6 mmol/L (3.5-5.1); Total Bilirubin 0.6 mg/dL (0.2-1.3)
--- NOTE | 2020-08-16 14:13 | XR ---
EXAMINATION TYPE: XR chest 2V DATE OF EXAM: 08/16/2020 COMPARISON: Chest x-ray 02/08/2020, CT chest 02/08/2020 HISTORY: Altered mental status TECHNIQUE: Frontal and lateral views of the chest are obtained. FINDINGS: There is no focal air space opacity, pleural effusion, or pneumothorax seen. The cardiac silhouette size is within normal limits. Surgical clips present in the upper abdomen. The aorta is dense and aneurysmal. Right hemidiaphragm remains elevated, there are overlying leads. Suspect distal right clavicular resection is stable. There are coronary calcifications present. The osseous structu res are intact. IMPRESSION: No acute cardiopulmonary process. Aortic aneurysm noted on prior CT. Additional findings above.
[2020-08-16] MEDS ORDERED: ASPIRIN 325 MG TAB PO STA (15:16)
[2020-08-16] MEDS: SODIUM CHLORIDE 0.9% 1,000 ML IV SCH (15:32)
[2020-08-16] MEDS ORDERED: IBUPROFEN 600 MG TAB PO PRN (19:08)
[2020-08-16] MEDS ORDERED: ACETAMINOPHEN TAB 500 MG TAB PO PRN (19:08)
[2020-08-16] MEDS ORDERED: CAPZASIN HP TOPICAL PRN (19:08)
[2020-08-16 20:02] LABS: Glucose,Whole Blood 116 mg/dL (75-99)
--- NOTE | 2020-08-16 20:15 | US ---
EXAMINATION TYPE: US carotid duplex BILAT DATE OF EXAM: 08/16/2020 COMPARISON: CT CLINICAL HISTORY: stroke. Stroke. EXAM MEASUREMENTS: RIGHT: Peak Systolic Velocity (PSV) cm/sec ----- Right CCA: 52.9 ----- Right ICA: 67.4 ----- Right ECA: 113.0 ICA/CCA ratio: 1.3 RIGHT: End Diastole cm/sec ----- Right CCA: 13.7 ----- Right ICA: 26.4 ----- Right ECA: 25.0 LEFT: Peak Systolic Velocity (PSV) cm/sec ----- Left CCA: 69.6 ----- Left ICA: 75.1 ----- Left ECA: 72.7 ICA/CCA ratio: 1.1 LEFT: End Diastole cm/sec ----- Left CCA: 15.7 ----- Left ICA: 21.1 ----- Left ECA: 16.8 VERTEBRALS (direction of flow): Right Vertebral: Antegrade Left Vertebral: Antegrade Rhythm: Intimal thickening bilaterally. Plaque seen bilateral bulbs. Left plaque appears to be greater than r ight side. No elevated velocities at this time. IMPRESSION: There is antegrade flow in the vertebral arteries. The images and measurements suggest approximate 40 % stenosis in both internal carotid arteries. Criteria for Assigning % of Stenosis / Diameter reduction (Estimation based on the indirect measurements of the internal carotid artery velocities (ICA PSV). 1. Normal (no stenosis)=ICA PSV < 125 cm/s: ratio < 2.0: ICA EDV<40 cm/s. 2. Less than 50% stenosis=ICA PSV < 125 cm/s: ratio < 2.0: ICA EDV<40 cm/s. 3. 50 to 69% stenosis=ICA PSV of 125 to 230 cm/s: ration 2.0 ? 4.0: ICA EDV 40-100 cm/s. 4. Greater than 70% stenosis to near occlusion= ICA PSV > 230 cm/s: ratio > 4.0: ICA EDV > 100 cm/s. 5. Near occlusion= ICA PSV velocities may be low or undetectable: variable ratio and ICA EDV. 6. Total occlusion=unable to detect flow.
--- NOTE | 2020-08-16 20:26 | HP ---
HISTORY AND PHYSICAL I am covering for Dr. Kern. DATE OF SERVICE: 08/16/2020 CHIEF COMPLAINTS: Change in mental status and slurring of speech. HISTORY OF PRESENT ILLNESS: This 85-year-old gentleman with a past medical history of hearing defect, history of cataracts, history of colon polyp, history of skin cancer, history of cholecystectomy, being followed by Dr. Kern in the outpatient setting, was apparently noted to have some confusion and some change in mental status today by the family. The patient is not quite baseline and answers are slightly off. The patient also had some dysarthria which lasted for a couple of hours, according to the family. The patient was taken to [facility] and admitted for evaluation and treatment. There is no history of any headache, loss of consciousness, seizures at this time. Initial labs are within normal limits and COVID-[address] brain was also done which showed some atrophy with mild periventricular chronic changes and white matter ischemic changes. Otherwise, chest x-ray showed no acute cardiopulmonary process. There is no history of any fever, rigor or chills at this time. PAST MEDICAL HISTORY: History of hearing defect, skin disorder, history of cataracts, cholecystectomy, hernia repair. HOME MEDICATIONS: Capsaicin cream, Motrin, Tylenol, Cymbalta. ALLERGIES: NONE. FAMILY HISTORY: History of cancer in the family. SOCIAL HISTORY: No history of smoking. No history of alcohol intake. REVIEW OF SYSTEMS: ENT: Diminished hearing. Diminished vision. CARDIOVASCULAR SYSTEM: No angina, palpitations. RESPIRATORY SYSTEM: No cough, hemoptysis. GI: No nausea, vomiting. : No dysuria or retention. NERVOUS SYSTEM: As mentioned earlier. ALLERGY/IMMUNOLOGY: No asthma, hayfever. MUSCULOSKELETAL: As mentioned earlier. HEMATOLOGY/ONCOLOGY: No history of anemia. ENDOCRINE: No history of diabetes, hypothyroidism. CONSTITUTIONAL: As mentioned earlier. DERMATOLOGY: Negative. RHEUMATOLOGY: Negative. PSYCHIATRY: As mentioned earlier. PHYSICAL EXAMINATION: Patient alert and oriented x3. Pulse 98, blood pressure 171/101, respirations 16, temperature 97.9, pulse ox 100% on room air. HEENT: Conjunctivae normal. NECK: No jugular venous distention. CARDIOVASCULAR SYSTEM: S1, S2 muffled. RESPIRATORY SYSTEM: Breath sounds diminished at the bases. No rhonchi. No crackles. ABDOMEN: Soft, non-tender. No mass palpable. LEGS: No edema. No swelling. NERVOUS SYSTEM: Higher functions as mentioned earlier. Moves all 4 limbs. No focal motor or sensory deficit. LYMPHATICS: No lymph node palpable in neck, axillae or groin. SKIN: No ulcer, rash, bleeding. JOINTS: No active deforming arthropathy. LABS: CBC within normal limits. Sodium 136. Other labs are noted. ASSESSMENT: 1. Change in mental status with possible acute transient ischemic attack. 2. Hypertension. 3. Hyponatremia. 4. History of hearing defect and deafness. 5. History of left cataract. 6. History of colon polyp. 7. History of cholecystectomy. 8. History of hernia repair. 9. FULL CODE. RECOMMENDATIONS AND DISCUSSION: In this 85-year-old gentleman who presented with multiple medical issues, we will monitor the patient closely. We will continue the antiplatelet agents. We will consult Neurology. Neuro checks. Complete neurovascular evaluation. Otherwise, we will continue to monitor. The home medications will be continued. A copy of this dictation is being forwarded to Dr. Kern, who is the primary physician. Dr. Kern will follow the patient tomorrow. MMODL / IJN: [id number] /
[2020-08-16] MEDS: DULoxetine HCL 60 MG CAPSULE.DR PO SCH (21:01)
[2020-08-16] MEDS ORDERED: hydrALAZINE HCL 25 MG TAB PO STA (21:36)
[2020-08-17] MEDS: SODIUM CHLORIDE 0.9% 1,000 ML IV SCH ×2 (03:08→11:08)
[2020-08-17 08:30] LABS: Basophils # (A) 0.1 k/uL (0-0.2); Basophils % (A) 1 %; Eosinophils # (A) 0.4 k/uL (0-0.7); Eosinophils % (A) 5 %; HCT 43.5 % (39.0-53.0); HGB 14.8 gm/dL (13.0-17.5); Lymphocytes # (A) 1.2 k/uL (1.0-4.8); Lymphocytes % (A) 18 %; MCH 30.4 pg (25.0-35.0); MCHC 33.9 g/dL (31.0-37.0); MCV 89.6 fL (80.0-100.0); Monocytes # (A) 0.5 k/uL (0-1.0); Monocytes % (A) 8 %; Neutrophils # (A) 4.4 k/uL (1.3-7.7); Neutrophils % (A) 66 %; Platelet Count 242 k/uL (150-450); RBC 4.86 m/uL (4.30-5.90); RDW 13.4 % (11.5-15.5); WBC 6.7 k/uL (3.8-10.6)
[2020-08-17 08:41] LABS: African American GFR (CKD) >90 (>60 ml/min/1.73 sqM); Anion Gap 10 mmol/L; Blood Urea Nitrogen 11 mg/dL (9-20); Calcium 9.1 mg/dL (8.4-10.2); Carbon Dioxide 26 mmol/L (22-30); Chloride 102 mmol/L (98-107); Cholesterol 175 mg/dL (<200); Glucose 103 mg/dL (74-99); HDL Cholesterol 31 mg/dL (40-60); LDL Cholesterol,Calculated 121 mg/dL (0-99); Non-African American GFR(CKD) 80 (>60 ml/min/1.73 sqM); Sodium 138 mmol/L (137-145); Triglycerides 117 mg/dL (<150)
--- NOTE | 2020-08-17 11:00 | ECHOF ---
Referral Reason:Stroke MEASUREMENTS -------- HEIGHT: 152.4 cm WEIGHT: 75.8 kg BP: IVSd: 1.2 cm (0.6 - 1.1) LVIDd: 4.1 cm (3.9 - 5.3) LVPWd: 1.4 cm (0.6 - 1.1) IVSs: 1.5 cm LVIDs: 3.2 cm LVPWs: 1.4 cm LAESV Index (A-L): 34.47 ml/m Ao Diam: 4.3 cm (2.0 - 3.7) AV Cusp: 1.6 cm (1.5 - 2.6) MV EXCURSION: 22.213 mm (> 18.000) MV EF SLOPE: 94 mm/s (70 - 150) EPSS: 0.8 cm MV E Dionte: 0.68 m/s MV DecT: 176 ms MV A Dionte: 1.20 m/s MV E/A Ratio: 0.57 AV maxP.24 mmHg AV meanP.88 mmHg RAP: 5.00 mmHg RVSP: 33.57 mmHg FINDINGS -------- Sinus rhythm. This was a technically adequate study. The left ventricular size is normal. There is mild concentric left ventricular hypertrophy. Overa ll left ventricular systolic function is low-normal with, an EF between 50 - 55 %. The right ventricle is normal in size. LA is midly dilated 29-33ml/m2. The right atrial size is normal. There is mild aortic valve sclerosis. Peak/mean gradient across the Aortic Valve is 8.24mmHg / 3.88 mmHg. Mild mitral regurgitation is present. Mild tricuspid regurgitation present. Right ventricular systolic pressure is normal at < 35 mmHg. There is no pulmonic regurgitation present. 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 There is no pericardial effusion. CONCLUSIONS -------- 1. The left ventricular size is normal. 2. There is mild concentric left ventricular hypertrophy. 3. Overall left ventricular systolic function is low-normal with, an EF between 50 - 55 %. 4. The right ventricle is normal in size. 5. LA is midly dilated 29-33ml/m2. 6. The right atrial size is normal. 7. There is mild aortic valve sclerosis. 8. Peak/mean gradient across the Aortic Valve is 8.24mmHg / 3.88mmHg. 9. Mild mitral regurgitation is present. 10. Mild tricuspid regurgitation present. 11. Right ventricular systolic pressure is normal at < 35 mmHg. 12. 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 13. There is no pericardial effusion. OBSERVATION ASSISTANT: Kate Mac RDCS
--- NOTE | 2020-08-17 11:09 | P.CNNES ---
History of Present Illness Consult date: 08/17/20 Requesting physician: Sathish Jovel Reason for Consult: slurrbeds speech and altered mental status History of Present Illness: This is an 85-year-old gentleman with history of hearing loss, skin cancer that presented to the emergency department on the 08/16/2020 for slurred speech and altered mental status. Patient stated that yesterday he was told by his and family members that and he was confused and was slurring his speech. He stated that when they're asking questions was hard for him to say that he has had a hard time answering them or not but when he was asked about his weight by the medical staff he stated that he couldn't come up with a number. Then when I asked him again whether he had difficulty understanding or not he stated that he understood what he was said that to him. But at times she had difficulty getting the words out at times she just couldn't come up by with the words or word answers. He feels he is back to baseline. He denies any focal weakness, visual disturbance, difficulty swallowing, numbness or tingling anywhere. He denies of any stroke or TIA or seizure in the past. He did state that he had his tooth worked on this past Friday but otherwise he had no fevers he denies of any tooth pain right now denies of any cough. It appears per the ED note that the family felt the patient is not his baseline in which she is alert oriented 4 about the was a little bit off in which he knew the year but didn't know the day of the week or the month. Patient also had some slurring the speech lasting couple hours according to family. According to the patient he has history of shingles over the right shoulder back in January 2020 and that he's been on pain medication and he denies overdosing on pain. He is being treated by the pain specialist and he could not tell me what pain medication he was on. Workup in the hospital consisted of: Initial vital signs is blood pressure of 173/107, heart rate of 89, temperature of 97.9 Fahrenheit oral, respiratory of 18, pulse ox of 94 L at room air. CT of the head is reported as atrophy with mild periventricular chronic-appe aring white matter changes. EKG is reported as normal sinus rhythm. Possible inferior infarct, age undetermined. Abnormal EKG. Carotid duplex is reported there is antegrade flow in the vertebral artery at. The images and measurements suggest approximate 40% stenosis of both internal carotid arteries White blood cells 5.5 which is normal Initial POC glucose is 77 which is borderline low normal repeated POC glucose is 116. Lipid panel: Is triglycerides 117, cholesterol is 175, LDLs 121 and HDL 31. Review of Systems Review of system: The 12 point system was reviewed and apparent positive and negative per HPI. Past Medical History Past Medical History: Cancer, Eye Disorder, Hearing Disorder / Deafness, Skin Disorder Additional Past Medical History / Comment(s): HX LT CATARACT; "CA COLON POLYP," & SKIN LESION CA; ING HERNIA'S AIDEN, LT RECURRENT NOW. Shingle in January 2020 History of Any Multi-Drug Resistant Organisms: None Reported Past Surgical History: Cholecystectomy, Hernia Repair, Orthopedic Surgery Additional Past Surgical History / Comment(s): COLONOSCOPY W/ POLYP. EXC LT CATARACT. RT ROTATOR CUFF, CTR, KNEE SCOPE. AIDEN ING HERNIA'S. Tooth extraction 08/16/20 Past Anesthesia/Blood Transfusion Reactions: No Reported Reaction Additional Past Anesthesia/Blood Transfusion Reaction / Comment(s): NO HX BLOOD TRANSFUSION. Smoking Status: Never smoker - Past Family History Mother Family Medical History: Cancer Medications and Allergies Home Medications Medication Instructions Recorded Confirmed Type Acetaminophen Tab [Tylenol Tab] 500 mg PO TID PRN 08/16/20 08/16/20 History Capzasin-Hp Cream 1 applic TOPICAL BID PRN 08/16/20 08/16/20 History DULoxetine HCL [Cymbalta] 60 mg PO HS@2100 08/16/20 08/16/20 History Ibuprofen [Motrin Ib] 600 mg PO TID PRN 08/16/20 08/16/20 History Allergies Allergy/AdvReac Type Severity Reaction Status Date / Time No Known Allergies Allergy Verified 08/16/20 15:53 Physical Examination - Vital Signs Vital Signs: Vital Signs Temp Pulse Pulse Resp BP BP Pulse Ox 08/17/20 08:50 98.0 F 102 H 16 132/76 95 08/17/20 03:24 106 H 16 142/80 96 08/16/20 23:56 101 H 16 148/85 96 08/16/20 19:16 97.8 F 99 16 173/103 93 L 08/16/20 18:24 98 16 171/101 100 08/16/20 15:34 92 16 146/89 99 08/16/20 13:11 89 16 125/89 08/16/20 12:49 97.9 F 89 18 173/107 94 L Intake and Output 08/16/20 08/17/20 08/17/20 22:59 06:59 14:59 Output Total 100 800 Balance -100 -800 Output: Urine 100 800 Other: Voiding Method Urinal Urinal Toilet Urinal Weight 77.111 kg 76 kg GENERAL: The patient is lying in bed and is not in acute distress. CHEST: The heart rate is regular rate rhythm. No murmurs to auscultation. No carotid bruit bilaterally. LUNG: Clear to auscultation bilaterally no wheezing noted throughout. Not labored breathing. ABDOMEN/GI: Bowel sounds present in all 4 quadrants. No tenderness to palpation throughout. INTEGUMANTARY: Healed skin rash over the right shoulder area NEUROLOGICAL: Higher mental function: The patient is awake, alert, oriented to self, place and time. Patient is following commands. No aphasia and no neglect. Cranial nerves: The pupils are round, equal and reactive to light and accommodation. Visual santana are full to confrontation throughout. Extraocular movement is intact no nystagmus is noted. Facial sensation is normal to touch throughout. The facial strength is normal throughout. Hearing is mildly decreased bilaterally to hand rub. Tongue is midline and moved [id number] without any difficulty. No dysarthria is noted. Shoulder shrug is normal aiden aterally. Motor: Gait is deferred. The strength is 5 over 5 throughout. Normal tone and bulk. Cerebellum: Normal finger to nose heel to aguirre bilaterally. Sensation: Sensation is normal to touch throughout. Reflexes (right/left): 2+ throughout while ankles are 1+ bilaterally. Plantars are downgoing bilaterally. Results Urine drug test the basic is nondetected Urinalysis is negative for urinary tract infection. Wen virus PCR is nondetected - Laboratory Findings CBC and BMP: 08/17/20 07:45 08/17/20 07:45 Abnormal Lab Findings: Abnormal Labs 08/16/20 08/16/20 08/17/20 13:06 20:00 07:45 Sodium 136 L Glucose 103 H POC Glucose (mg/dL) 116 H LDL Cholesterol, Calc 121 H HDL Cholesterol 31 L Assessment and Plan Assessment: This is an 85-year-old gentleman that presented to the emergency department on the 08/16/2020 for altered mental status. It appears per the ED note that the family felt the patient is not his baseline in which she is alert oriented 4 about the was a little bit off in which he knew the year but didn't know the day of the week or the month. 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 Carotid duplex is reported there is antegrade flow in the vertebral artery. The images and measurements suggest approximate 40% stenosis of both internal carotid arteries Lipid panel: Is triglycerides 117, cholesterol is 175, LDLs 121 and HDL 31. The patient was started on aspirin 325 by the ED. I discontinued the aspirin 325 mg daily and I started the patient on aspirin 81 mg daily and Plavix 75 mg daily and for the patient to be on the postmedication for 21 days then after 21 days to discontinue Plavix and continue aspirin 81 mg indefinitely. I started the patient on Lipitor 20 mg daily for secondary stroke prophylaxis.. I ordered MRI of the brain. I ordered a routine EEG. I'll not start the patient on antiepileptic drugs unless there is epileptiform discharge or seizure on EEG. 2-D echo was ordered by the primary team. Continue every 4 neuro checks Continue cardiac monitoring PT, OT and RECREATION OFFICER are consulted. Please avoid aggressive control of the blood pressure in the first 24-40 hours and allow permissive hypertension. Controlled blood pressure of it's more than 180/100 and we will defer the management to the primary team We will defer the rest of the medical management to the primary team. The plan is discussed with the patient and his nurse. Thank you for the consultation. Ethan Franklin M.D. Neuro-hospitalist Time with Patient: Greater than 30
[2020-08-17] MEDS: CLOPIDOGREL 75 MG TAB PO SCH (11:23)
[2020-08-17] MEDS ORDERED: ASPIRIN 325 MG TAB PO SCH (12:00)
--- NOTE | 2020-08-17 13:48 | P.PN ---
Subjective Progress Note Date: 08/17/20 This is a 85-year-old gentleman admitted with altered mental status, dysarthria, mild bilateral internal carotid stenosis 40%, possible TIA and multiple other medical issues in a patient who had a shingles outbreak in January 2020 . Evaluated by neurology and neuro workup in progress. Echo reported normal LV function, EF 50-55%, dilated aortic root 4.2 cm .Denies chest pain, palpitations or shortness of breath. Objective - Vital Signs Vital signs: Vital Signs Temp 98.0 F 08/17/20 08:50 Pulse 102 H 08/17/20 08:50 Resp 16 08/17/20 08:50 BP 132/76 08/17/20 08:50 Pulse Ox 95 08/17/20 08:50 Intake & Output 08/16/20 08/17/20 08/17/20 18:59 06:59 18:59 Output Total 900 Balance -900 Weight 77.111 kg 76 kg Output: Urine 900 Other: Voiding Method Urinal - Exam PHYSICAL EXAM: VITAL SIGNS: As above GENERAL: Sitting up in bed, no acute distress,No Dysarthria noted at this time HEENT: Conjunctivae normal. Hard of hearing. NECK: No JVD. No thyroid enlargement. No LNs CARDIOVASCULAR: S1, S2 regular.. No murmur RESPIRATION: Breath sounds diminished in the bases. No rhonchi or crackles. No bronchial breathing. ABDOMEN: Soft, nontender . No guarding. no masses palpable. No ascites, No hepatosplenomegaly.Bowel sounds heard. LEGS: No edema. no swelling PSYCHIATRY: Alert and oriented X3, mood and affect normal. NERVOUS SYSTEM: Cranial N 2-12 grossly normal. Moves all 4 limbs. No focal deficits. Strength and sensation grossly intact.. Skin: no lesions, no rash Joints: No active swelling. No inflammation. Lymphatic system. No LN neck axilla or groin. - Labs CBC & Chem 7: 08/17/20 07:45 08/17/20 07:45 Labs: Abnormal Lab Results - Last 24 Hours (Table) 08/16/20 08/16/20 08/17/20 Range/Units 13:06 20:00 07:45 Sodium 136 L (137-145) mmol/L Glucose 103 H (74-99) mg/dL POC Glucose (mg/dL) 116 H (75-99) mg/dL LDL Cholesterol, Calc 121 H (0-99) mg/dL HDL Cholesterol 31 L (40-60) mg/dL Assessment and Plan Assessment: Altered mental status, acute metabolic encephalopathy, dysarthria, possible TIA. Shingles outbreak January 2020, maintained on pain medication, possibly change in mental status secondary to a component of herpetic encephalopathy Bilateral ICA stenosis 40% Dilated aortic root, 4.2 cm Hard of hearing Plan: Continue on current medication regime ,monitoring and symptomatic treatment. Neurology workup in progress-MRI/EEG pending. Currently maintained on both aspirin ,Plavix and statin. Evaluated by PT reporting no functional limits with discharge recommendations for home at discharge. Discharge planning in progress for tomorrow pending completion of neuro workup/results, neurology's final DC recommendations and clearance. The impression and plan of care has been dictated as directed. : I performed a history and examination of this patient, discussed the same with the dictator. I agree with the dictator's note ,documented as a scribe. Any additional findings or plans will be noted.
--- NOTE | 2020-08-17 17:04 | EEG ---
ELECTROENCEPHALOGRAM REPORT DATE OF SERVICE: 08/17/2020 CLINICAL HISTORY: This is an 85-year-old gentleman with a brief episode of altered mental status. This video EEG is obtained to evaluate for seizure and epileptiform activity. RELEVANT MEDICATION: Patient is not on any antiepileptic drugs. DESCRIPTION: Wakefulness and drowsiness are obtained. During wakefulness, there is a posterior dominant rhythm of low to moderate voltage, poorly modulated of 7-7.5 hertz activity. During drowsiness there is slowing and attenuation of the background activity. There is no physiological stage 2 sleep seen. There are some myogenic artifacts throughout the study. There is no focal slowing. Interictal and ictal are none. ACTIVATION PROCEDURE: Photic stimulation did not evoke a posterior driving response. Hyperventilation is not performed. CLINICAL INTERPRETATION: This is an abnormal routine EEG. The background slowing is suggestive of mild encephalopathy of nonspecific etiology. There are no focal slowing, epileptiform discharges or seizures during the EEG. Clinical correlation is recommended. DANIELLE / DOMINGON: [id number] / MTDD
[2020-08-17] MEDS: DULoxetine HCL 60 MG CAPSULE.DR PO SCH (20:39)
[2020-08-17] MEDS ORDERED: ATORVASTATIN 20 MG TAB PO SCH (21:00)
[2020-08-17 23:13] VITALS: RESP 18
[2020-08-18] MEDS: SODIUM CHLORIDE 0.9% 1,000 ML IV SCH ×2 (03:35→07:42)
[2020-08-18 05:48] VITALS: TEMP 97.9
[2020-08-18 06:41] LABS: Glucose,Whole Blood 103 mg/dL (75-99)
[2020-08-18 07:42] VITALS: BP 159/89; PULSE 98
[2020-08-18] MEDS: CLOPIDOGREL 75 MG TAB PO SCH (07:43)
[2020-08-18] MEDS ORDERED: ASPIRIN 81 MG PO SCH (09:00)
--- NOTE | 2020-08-18 10:29 | P.PN ---
Subjective Progress Note Date: 08/18/20 Patient was seen at bedside and he stated that she feels better since been the hospital and has not had any further episodes of slurring the speech or confusion. He feels he is back to baseline. Denies of any focal weakness or numbness. Denies of any visual disturbance. An EEG was done on the 08/17/2020 and it was abnormal. It shows the background slowing suggestive of mild encephalopathy of nonspecific etiology. There are no focal slowing, perform discharges or seizure on the EEG. Objective - Vital Signs Vital signs: Vital Signs Temp 97.9 F 08/18/20 07:41 Pulse 98 08/18/20 07:41 Resp 18 08/18/20 07:41 BP 159/89 08/18/20 07:41 Pulse Ox 95 08/18/20 07:41 Intake & Output 08/17/20 08/18/20 08/18/20 18:59 06:59 18:59 Intake Total 720 475 Output Total 150 940 Balance 570 -465 Weight 77.2 kg Intake: Oral 720 475 Output: Urine 150 940 Other: Voiding Method Toilet Toilet Urinal Urinal # Voids 3 1 - Exam GENERAL: The patient is lying in bed and is not in acute distress. NEUROLOGICAL: Higher mental function: The patient is awake, alert, oriented to self, place and time. Patient is following commands. No aphasia and no neglect. Cranial nerves: The pupils are round, equal and reactive to light and acc ommodation. Visual santana are full to confrontation throughout. Extraocular movement is intact no nystagmus is noted. Facial sensation is normal to touch throughout. The facial strength is normal throughout. Hearing is mildly decreased bilaterally to hand rub. Tongue is midline and moved [id number] without any difficulty. No dysarthria is noted. Shoulder shrug is normal bilaterally. Motor: Gait is deferred. The strength is 5 over 5 throughout. Normal tone and bulk. Cerebellum: Normal finger to nose heel to augirre bilaterally. Sensation: Sensation is normal to touch throughout. Reflexes (right/left): 2+ throughout while ankles are 1+ bilaterally. Plantars are downgoing bilaterally. - Labs CBC & Chem 7: 08/17/20 07:45 08/17/20 07:45 Labs: Abnormal Lab Results - Last 24 Hours (Table) 08/18/20 Range/Units 06:39 POC Glucose (mg/dL) 103 H (75-99) mg/dL Assessment and Plan Assessment: This is an 85-year-old gentleman that presented to the emergency department on the 08/16/2020 for altered mental status. It appears per the ED note that the family felt the patient is not his baseline in which she is alert oriented 4 about the was a little bit off in which he knew the year but didn't know the day of the week or the month. 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 Carotid duplex is reported there is antegrade flow in the vertebral artery. The images and measurements suggest approximate 40% stenosis of both internal carotid arteries Lipid panel: Is triglycerides 117, cholesterol is 175, LDLs 121 and HDL 31. Continue aspirin 81 mg daily and Plavix 75 mg daily and for the patient to be on the dual antiplatelet for 21 days then after 21 days to discontinue Plavix and continue aspirin 81 mg indefinitely. Continue Lipitor 20 mg daily for secondary stroke prophylaxis.. MRI of the brain is pending. An EEG was done on the 08/17/2020 and it was abnormal. It shows the background slowing suggestive of mild encephalopathy of nonspecific etiology. There are no focal slowing, perform discharges or seizure on the EEG. 2-D echo: There is mild concentric left ventricular hypertrophy. Overall left ventricle systolic function is low normal with ejection fraction between 55%. Left atrium is mildly dilated. Continue every 4 neuro checks Continue cardiac monitoring PT, OT and CRINKLING MACHINE OPERATOR are consulted. Recommend normotensive blood pressure. If the MRI the brain is negative for acute or subacute stroke then the patient that can be discharged home and do for the patient to follow-up with a neurologist within 2 weeks as outpatient. We will defer the rest of the medical management to the primary team. The plan is discussed with the patient and his nurse. UPDATE: MR the brain is reported as atrophy with periventricular white matter ischemic type changes. Differential diagnosis could include multiple sclerosis in the proper clinical setting. From the patient's history physical examination does not seem like multiple sclerosis Ethan Franklin M.D. Neuro-hospitalist Time with Patient: Less than 30
--- NOTE | 2020-08-18 11:35 | P.DS ---
Providers Date of admission: 08/17/20 14:23 Expected date of discharge: 08/18/20 Attending physician: Mushtaq Kern Consults: 08/16/20 15:17 Consult Physician Routine Consulting Provider: Ethan Franklin Consult Reason/Comments: Slurred speech, altered mental status Do you want consulting provider notified?: Yes Primary care physician: Muhstaq Kern [facility] Course: Final Diagnoses: Altered mental status, acute metabolic encephalopathy, dysarthria, possible TIA. Shingles outbreak January 2020, maintained on pain medication, possibly change in mental status secondary to a component of herpetic encephalopathy. EEG suggestive of mild encephalopathy with nonspecific etiology. Bilateral ICA stenosis 40% Dilated aortic root, 4.2 cm Hard of hearing Hospital course:This is a 85-year-old gentleman admitted with altered mental status, dysarthria, mild bilateral internal carotid stenosis 40%, possible TIA and multiple other medical issues in a patient who had a shingles outbreak in January 2020 . Evaluated by neurology and neuro workup in progress. Echo reported normal LV function, EF 50-55%, dilated aortic root 4.2 cm .Denies chest pain, palpitations or shortness of breath. Evaluated by neurology with workup completed. EEG reported background slowing ,suggestive of mild encephalopathy of nonspecific etiology, no focal slowing, electroform discharges or seizures. MRI completed, results pending. Significant clinical improvement. Patient will be discharged home today pending MRI results, final DC recommendations and clearance from neurology. The impression and plan of care has been dictated as directed. : I performed a history and examination of this patient, discussed the same with the dictator. I agree with the dictator's note ,documented as a scribe. Any additional findings or plans will be noted. Patient Condition at Discharge: Stable Plan - Discharge Summary Discharge Rx Participant: No New Discharge Prescriptions: New Aspirin EC [Ecotrin Low Dose] 81 mg PO DAILY #30 tablet. Atorvastatin [Lipitor] 20 mg PO HS #30 tab Clopidogrel [Plavix] 75 mg PO DAILY 21 Days #21 tab Famotidine [Pepcid] 20 mg PO DAILY #30 tablet Continue Ibuprofen [Motrin Ib] 600 mg PO TID PRN PRN Reason: Pain Acetaminophen Tab [Tylenol] 500 mg PO TID PRN PRN Reason: Pain DULoxetine HCL [Cymbalta] 60 mg PO HS@2100 Capzasin-Hp Cream 1 applic TOPICAL BID PRN PRN Reason: nerve pain Discharge Medication List Acetaminophen Tab [Tylenol] 500 mg PO TID PRN 08/16/20 [History] Capzasin-Hp Cream 1 applic TOPICAL BID PRN 08/16/20 [History] DULoxetine HCL [Cymbalta] 60 mg PO HS@2100 08/16/20 [History] Ibuprofen [Motrin Ib] 600 mg PO TID PRN 08/16/20 [History] Aspirin EC [Ecotrin Low Dose] 81 mg PO DAILY #30 tablet. 08/18/20 [Rx] Atorvastatin [Lipitor] 20 mg PO HS #30 tab 08/18/20 [Rx] Clopidogrel [Plavix] 75 mg PO DAILY 21 Days #21 tab 08/18/20 [Rx] Famotidine [Pepcid] 20 mg PO DAILY #30 tablet 08/18/20 [Rx] Follow up Appointment(s)/Referral(s): Mushtaq Kern DO [Primary Care Provider] - 08/24/20 10:00 am Randi Griggs MD [Medical Doctor] - 2 Weeks Patient Instructions/Handouts: Transient Ischemic Attack (DC) Activity/Diet/Wound Care/Special Instructions: PT/OT,VICE PRESIDENT TALENT MANAGEMENT Discharge Disposition: HOME WITH HOME HEALTH SERVICES
--- NOTE | 2020-08-18 12:32 | MR ---
EXAMINATION TYPE: MR brain wo/w con DATE OF EXAM: 08/18/2020 COMPARISON: CT brain 08/16/2020 HISTORY: Stroke CONTRAST: Performed utilizing 7.5 mL intravenous Gadavist gadolinium contrast. TECHNIQUE: Multiplanar, multiecho imaging on a 3.0 Angie magnet is performed through the brain. Stud y is not performed within 24 hours of arrival to the hospital. The craniovertebral junction is normal. The pituitary is normal. Diffusion-weighted imaging is performed. No abnormal hyperintensity is present to suggest an acute i ntracranial infarct or acute ischemic change. There are scattered punctate areas of hyperintensity on T2 and Inversion Recovery weighted sequences in the periventricular white matter which are non-specific but can be related to microvascular ischem ic changes. Some white matter changes within the brainstem. This is greater on the left. Differential diagnosis would include multiple sclerosis. Ventricles and sulci are appropriate for the patient age. No abnormal enhancement is evident. IMPRESSIONS: 1. Atrophy with periventricular white matter ischemic type changes. Differential diagnosis could incl ude multiple sclerosis in the proper clinical setting
--- NOTE | 2020-08-23 12:34 | CDI ---
Documentation Clarification Form Date: 08/23/20 From: Viky Chapman Phone: If you have a question about this query, please contact Mirella Alvares, Drying Room Supervisor at [phone] between 8am and 5pm. Admit Date: 08/17/2020 02:23:00 PM Patient Name: Freddy Myers Visit Number: [id number] Discharge Date: 08/18/2020 12:39:00 PM ATTENTION: The Clinical Documentation Specialists (CDI) and [facility] Coding Staff appreciate your assistance in clarifying documentation. Please respond to the clarification below the line at the bottom and electronically sign. The CDI & [facility] Coding staff will review the response and follow-up if needed. Please note: Queries are made part of the Legal Health Record. If you have any questions, please contact the author of this message via ITS. Dr. Ethan Franklin Your patient has the documented diagnosis of TIA and Bilateral ICA Stenosis in your notes dated 08/17/20. A relationship between diagnoses cannot be assumed unless documented as such by the attending physician. In order to capture the severity of condition; please document the relationship, if any, between these diagnoses. History/Risk Factors: Altered Mental Status, Hypertension, Clinical Indicators: 40% stenosis of both internal arteries. Treatment: Cardiac monitoring Please clarify and document your clinical opinion in the progress notes and discharge summary if any relationship (due to, caused by, secondary to) exists between these two diagnoses. Please include clinical findings supporting your diagnosis. Other explanation of clinical findings (please specify) Unable to determine (no explanation for clinical findings) Unable to determine. It seems that ICA stenosis will be the cause of Transient ischemic attack.<------- Also I have updated my note (Last Revision: March 2017) MTDD
== END 2020-08-18 12:39 | disposition home health service (06) | DRG 67 ==
LOC: EC 12:48 → 3SCARD 15:16 → OBSVTOIN 08-17 14:23
PROVIDERS: ADMIT Family Medicine; ATTEND Family Medicine
DX: I65.23 Occlusion and stenosis of bilateral carotid arteries (principal); G93.41 Metabolic encephalopathy; E87.1 Hypo-osmolality and hyponatremia; B02.29 Other postherpetic nervous system involvement; H26.9 Unspecified cataract; H91.90 Unspecified hearing loss, unspecified ear; I10 Essential (primary) hypertension; I77.810 Thoracic aortic ectasia; Z20.822 Contact with and (suspected) exposure to COVID-19; Z86.73 Personal history of transient ischemic attack (TIA), and cerebral infarction without residual deficits; Z79.899 Other long term (current) drug therapy; Z85.828 Personal history of other malignant neoplasm of skin; Z86.19 Personal history of other infectious and parasitic diseases; R47.1 Dysarthria and anarthria; G31.9 Degenerative disease of nervous system, unspecified
CPT/HCPCS: 36415; 70450; 70553; 71046; 80048; 80053; 80061; 80306; 81003; 84484; 85025; 85610; 85730; 87635; 93005; 93306; 93880; 94760; 95816; 96360; 96361; 99285

== ENCOUNTER 2022-04-09 13:48 | Emergency (ER) | payer MEDICARE, BC ==
[2022-04-09 14:10] VITALS: RESP 20; TEMP 98.5
[2022-04-09] MEDS ORDERED: DIPH,PERTUS(ACELL)TETVAC-LF 0.5 ML VIAL IM ONE (14:57)
--- NOTE | 2022-04-09 15:04 | ED ---
General Adult HPI - General Chief complaint: Fall Stated complaint: Fall-Head injury Time Seen by Provider: 04/09/22 14:50 Source: patient, RN notes reviewed, old records reviewed Mode of arrival: ambulatory Limitations: no limitations - History of Present Illness Initial comments: 86-year-old male who had presented status post fall in his garage. Patient states this occurred just several hours prior to arrival. He had some abrasions to the bilateral upper extremities, and fallen striking the right side of his forehead with abrasion. No loss consciousness. No anticoagulation. Patient was initially amnestic to the event and was confused according to his . He states he now remembers that he tripped over the tongue of a trailer. - Related Data Home Medications Medication Instructions Recorded Confirmed Acetaminophen Tab [Tylenol] 500 mg PO TID PRN 08/16/20 08/16/20 Capzasin-Hp Cream 1 applic TOPICAL BID PRN 08/16/20 08/16/20 DULoxetine HCL [Cymbalta] 60 mg PO HS@2100 08/16/20 08/16/20 Ibuprofen [Motrin Ib] 600 mg PO TID PRN 08/16/20 08/16/20 Previous Rx's Medication Instructions Recorded Aspirin EC [Ecotrin Low Dose] 81 mg PO DAILY #30 tablet. 08/18/20 Atorvastatin [Lipitor] 20 mg PO HS #30 tab 08/18/20 Clopidogrel [Plavix] 75 mg PO DAILY 21 Days #21 tab 08/18/20 Famotidine [Pepcid] 20 mg PO DAILY #30 tablet 08/18/20 Allergies Allergy/AdvReac Type Severity Reaction Status Date / Time No Known Allergies Allergy Verified 04/09/22 14:10 Review of Systems ROS Statement: Those systems with pertinent positive or pertinent negative responses have been documented in the HPI. ROS Other: All systems not noted in ROS Statement are negative. Past Medical History Past Medical History: Cancer, Eye Disorder, Hearing Disorder / Deafness, Skin Disorder Additional Past Medical History / Comment(s): HX LT CATARACT; "CA COLON POLYP," & SKIN LESION CA; ING HERNIA'S AIDEN, LT RECURRENT NOW. [place] in January 2020 History of Any Multi-Drug Resistant Organisms: None Reported Past Surgical History: Cholecystectomy, Hernia Repair, Orthopedic Surgery Additional Past Surgical History / Comment(s): COLONOSCOPY W/ POLYP. EXC LT CATARACT. RT ROTATOR CUFF, CTR, KNEE SCOPE. AIDEN ING HERNIA'S. Tooth extrac tion 08/16/20 Past Anesthesia/Blood Transfusion Reactions: No Reported Reaction Additional Past Anesthesia/Blood Transfusion Reaction / Comment(s): NO HX BLOOD TRANSFUSION. Past Psychological History: No Psychological Hx Reported Smoking Status: Never smoker Past Alcohol Use History: None Reported Past Drug Use History: None Reported - Past Family History Mother Family Medical History: Cancer General Exam Limitations: no limitations General appearance: alert, in no apparent distress Head exam: Present: other (Hematoma and abrasion to the right forehead) Neck exam: Present: normal inspection. Absent: tenderness, meningismus Respiratory exam: Present: normal lung sounds bilaterally. Absent: respiratory distress, wheezes Cardiovascular Exam: Present: regular rate, normal rhythm GI/Abdominal exam: Present: soft. Absent: distended, tenderness, guarding Extremities exam: Present: other (Superficial abrasions, right forearm, left hand) Neurological exam: Present: alert, oriented X3, CN II-XII intact. Absent: motor sensory deficit Skin exam: Present: warm, dry Course Vital Signs 04/09/22 14:07 Temperature 98.5 F Pulse Rate 79 Respiratory 20 Rate Blood Pressure 131/81 O2 Sat by Pulse 98 Oximetry Medical Decision Making - Medical Decision Making 86-year-old male with head injury, post injury confusion now resolved. Patient has abrasion and hematoma over the frontal scalp on the right. Pupils are equal and reactive. Is alert with a nonfocal neurologic exam. He has stable vitals. Head CT is performed which is negative for intracranial hemorrhage. There is no fracture or subluxation the cervical spine. His tetanus is updated. His abrasions are dressed in the emergency department. Stable for discharge at this time. Disposition Clinical Impression: Fall, Concussion Disposition: HOME SELF-CARE Condition: Good Instructions (If sedation given, give patient instructions): Concussion (ED) Is patient prescribed a controlled substance at d/c from ED?: No Referrals: Mushtaq Kern DO [Primary Care Provider] - 1-2 days Time of Disposition: 15:49
--- NOTE | 2022-04-09 15:36 | CT ---
EXAMINATION TYPE: CT brain cspine wo con DATE OF EXAM: 04/09/2022 COMPARISON: Brain 08/16/2020 HISTORY: 86-year-old male pain after fall, head lac to forehead CT DLP: 1316.9 mGycm Automated exposure control for dose reduction was used. Technique: Examination of the head was done in axial plane without intravenous contrast. Coronal and sagittal reconstructions performed. CT of the cervical spine was obtained in axial plane without intravenous injection of contrast mater ial. Coronal and sagittal reformatted images were obtained from the axial views for evaluation of f ractures, spinal alignment and canal. FINDINGS: Head: There is no evidence of acute intracranial hemorrhage, acute ischemic changes, mass, mass-effect, or extra-axial fluid collection. There is no effacement of cerebral sulci or basal subarachnoid cister ns. Similar mild ventriculomegaly likely secondary to central cerebral atrophy. Multiple lacunar infarcts left basal ganglia redemonstrated. Moderate white matter hypodensities in both cervical hemispheres similar. Extensive atherosclerotic calcifications in the carotid siphons. There is no midline shift. Campos-white matter distinction is preserved. Medial right supraorbital and right frontal scalp contusion. No underlying calvarial fracture. Underl doroteo orbits and globes appear intact. Mild mucosal thickening maxillary sinuses. Mastoid air cells are pneumatized. Slight leftward nasal s eptal deviation. Cervical spine: No craniocervical junction of the body, predental space widening, or prevertebral soft tissue swellin g. Extensive degenerative change C1 stents articulation likely with some early bony ankylosis. There is additional anterior bridging endplate spondylosis from C5 through T2 levels. Alignment is maintained. Moderate underlying degenerative disc disease and endplate spondylosis. Disc osteophyte complex at C4-C5 mildly narrows the spinal canal. No acute fracture seen of the cervical spine. Multilevel facet and uncovertebral joint arthropathy. At C3-C4, changes result in moderate bilateral neuroforaminal stenosis. At C4-C5, changes result in severe right and mild left neuroforaminal stenosis. At C5-C6, changes resulted moderate to severe bilateral neural foraminal stenosis. At C6-C7, changes results in moderate to severe right and moderate left neuroforaminal stenosis. Sagittal and coronal reformatted images confirm above findings. COMBINED IMPRESSION: 1. Anterior right frontal and right supraorbital soft tissue contusion. No underlying acute intracran ial abnormality seen. 2. Similar ventriculomegaly likely secondary to central cerebral atrophy. Moderate burden of chronic small vessel ischemic disease. 3. No acute fracture or malalignment of the cervical spine. 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 Moderate multilevel spondylotic change as above.
[2022-04-09 16:12] VITALS: BP 167/86; PULSE 69
== END 2022-04-09 16:08 | disposition home or self-care (01) ==
LOC: EC 13:48
DX: S06.0X0A Concussion without loss of consciousness, initial encounter (principal); Z23 Encounter for immunization; W01.119A Fall on same level from slipping, tripping and stumbling with subsequent striking against unspecified sharp object, initial encounter
CPT/HCPCS: 70450; 72125; 90471; 90715; 99283